=== PATIENT | male | born 1960 | race Caucasian/White ===

== ENCOUNTER 2016-10-25 23:25 | Inpatient (IN) ==
[2016-10-26 01:33] LABS: Basophils % 0.3 %; Eosinophils # 0.2 K/mcL (0.0-0.6); Eosinophils % 2.4 %; Hematocrit 40.7 % (37.5-50.1); Hemoglobin 13.3 g/dL (12.9-16.9); Immature Granulocytes % 0.3 % (0-4); Lymphocytes # 2.6 K/mcL (0.6-4.6); Lymphocytes % 29.9 %; Mean Corpuscular HGB Conc 32.7 g/dL (31.6-35.5); Mean Corpuscular Hemoglobin 29.8 pg (28.0-33.3); Mean Corpuscular Volume 91.3 fL (83.0-100.0); Mean Platelet Volume 9.7 fL (9.4-12.4); Monocytes # 0.9 K/mcL (0.0-1.3); Monocytes % 10.1 %; Platelet Count 248 K/mcL (140-400); Red Blood Count 4.46 M/mcL (4.19-5.50); Red Cell Distribution Width 13.6 % (11.5-14.5)
[2016-10-26 01:48] LABS: Alanine Aminotransferase 19 Units/L (0-55); Albumin 3.6 g/dL (3.5-5.0); Alkaline Phosphatase 70 Units/L (38-126); Aspartate Amino Transferase 24 Units/L (5-34); BUN/Creatinine Ratio 27 (6-26); Bilirubin,Direct 0.2 mg/dL (0.0-0.5); Bilirubin,Indirect 0.2 mg/dL (0.0-1.2); Bilirubin,Total 0.4 mg/dL (0.2-1.2); Blood Urea Nitrogen 26 mg/dL (8-26); Carbon Dioxide 21 mEq/L (19-29); Chloride 109 mEq/L (98-109); Globulin 3.5 g/dL (2.4-3.5); Glucose 131 mg/dL (70-99); Osmolality,Calculated 297 (280-300); Potassium 3.6 mEq/L (3.5-4.5); Sodium 140 mEq/L (136-145); Total Protein 7.1 g/dL (6.0-8.3); eGFR For African Americans > 60 (> 60); eGFR For Non-African Americans > 60 (> 60)
[2016-10-26 02:13] LABS: Acetaminophen < 1.0 mcg/mL (10-30); Ethanol < 10 mg/dL (0-10); Salicylate < 5.0 mg/dL (15-30)
[2016-10-26 02:31] LABS: Bilirubin,Urine Small (Negative); Blood,Urine Negative (Negative); Clarity,Urine Clear (Clear); Color,Urine Yellow (Yellow); Glucose,Urine (UA) Normal (Normal); Ketones,Urine Negative (Negative); Leukocyte Esterase,Urine Negative (Negative); Nitrite,Urine Negative (Negative); Protein,Urine Negative (Neg-Trace); Specific Gravity,Urine > 1.030 (1.010-1.025); Urobilinogen,Urine Normal (Normal)
[2016-10-26 02:32] LABS: Thyroid Stimulating Hormone 3.112 mcIU/mL (0.350-4.840)
[2016-10-26 02:33] LABS: Amphetamine Screen,Urine Negative ng/mL (Cutoff=1000); Barbiturate Screen,Urine Negative ng/mL (Cutoff=200); Benzodiazepines Screen,Urine Negative ng/mL (Cutoff=200); Cannabinoid Screen,Urine Positive ng/mL (Cutoff = 50); Cocaine Screen,Urine Negative ng/mL (Cutoff= 300); Opiate Screen,Urine Negative ng/mL (Cutoff=300); Phencyclidine Screen,Urine Negative ng/mL (Cutoff=25)
[2016-10-26] MEDS ORDERED: Acetaminophen 325 MG TABLET PO ONE (04:11)
--- NOTE | 2016-10-26 05:39 | Emergency Department Note ---
Disposition Clinical Impression: Xiao, Paranoia (psychosis) Strain of lumbar region Qualifiers: Encounter type: initial encounter Qualified Code(s): S39.012A - Strain of muscle, fascia and tendon of lower back, initial encounter Schizophrenia Qualifiers: Schizophrenia type: unspecified Qualified Code(s): F20.9 - Schizophrenia, unspecified Disposition: Still a Patient Condition: Fair Referrals: NO,PCP [Non-Partnered Physician] - Forms: ED Satisfaction Letter Psych HPI - General Chief Complaint: ED Back Pain/Injury Stated Complaint: back pain Time Seen by Provider: 10/26/16 03:06 Source: patient, EMS, police Mode of arrival: ambulatory Limitations: no limitations Nursing Notes Reviewed: Yes Vital Signs Reviewed: Yes - History of Present Illness HPI Narrative: Patient is a 56-year-old white male with a known history of schizophrenia who is had prior psychiatric admissions at [facility] in the past, who presents to the emergency department after he called police from his home reporting that he had been shot. Please responded to the scene once to find him uninjured and complaining of some paranoia that people were after him. According to the police they left the scene and he again called them with reports of people that were after him and trying to shoot him. Patient was brought to the emergency department for delusions and tangential thought, was reported by police that he was at home with extreme paranoia explaining various unrelated situations where people were after him and threatening to harm him. On arrival to the emergency department he told the triage nurse that he even on a riding lawnmower and describes a traumatic incident in which the mower rolled over completely on itself and he ended up upright still on the mower uninjured, and then began noticing some mild low back pain. Patient denies any radiation of pain, is ambulatory in the emergency department without difficulty, having racing thoughts and upon entering room patient had RT written two detailed pages about his random thought process and experiences at home prior to arrival. Police state at one time when they arrived at the scene he was sitting on the mower with no reported injuries or history of trauma. Pt complaint: altered mental status, anxiety If medical clearance, reason: psychiatric condition Onset (ago): Just [employer] HAND Duration: constant History of similar episodes: Yes Improves with: none Worsens with: none Alleged intoxication: No Associated Psychiatric Symptoms: racing thoughts, anxiety, other (agitation with questioning) Associated symptoms: Reports: other (back pain) Treatments prior to arrival: none, psychiatric referral (brought by police/EMS) - Related Data Allergies Allergy/AdvReac Type Severity Reaction Status Date / Time No Known Allergies Allergy Verified 10/25/16 23:51 All systems ED: reviewed and negative except as stated. Constitutional: Denies: fever, chills, weakness Eyes: Denies: vision change ENT ED: Denies: dysphagia Cardiovascular: Denies: chest pain, palpitations, dyspnea on exertion, syncope Respiratory: Denies: cough, dyspnea Gastrointestinal: Denies: abdominal pain, nausea, vomiting Genitourinary: Denies: urgency, dysuria Musculoskeletal: Reports: back pain (Patient with bilateral paraspinal lumbosacral tenderness, no midline tenderness). Denies: neck pain Integumentary: Denies: rash Neurological: Denies: headache, weakness, numbness, paresthesias, abnormal gait , vertigo Psychiatric: Reports: anxiety, visual hallucinations, other (Delusions, paranoia , intermittent agitation). Denies: suicidal thoughts, homicidal thoughts Past Medical History - Past Medical History Medical history: Reports: no medical history Psychiatric history: Reports: anxiety - Social History Smoking Status: Current every day smoker Alcohol use: Reports: none Drug use: Reports: none Physical Exam - General Limitations: no limitations General appearance: alert, in no apparent distress, anxious, other (Poor hygiene , disheveled) - Head Head exam: atraumatic, normocephalic - Eye Eye exam: Present: PERRL, EOMI. Absent: conjunctival injection - ENT ENT exam: normal oropharynx, mucous membranes moist - Neck Neck exam: Present: normal inspection, full ROM. Absent: tenderness - Chest Chest inspection: Present: normal inspection, symmetric chest wall rise. Absent : tenderness - Respiratory Respiratory exam: Present: normal lung sounds bilaterally. Absent: respiratory distress, wheezes - Cardiovascular Cardiovascular exam: Present: regular rate, normal rhythm, normal heart sounds - Abdominal Exam Abdominal exam: Present: soft, Non-Tender, normal bowel sounds. Absent: distention, guarding, rebound, rigidity - Rectal Exam Rectal exam: Present: deferred - Extremities Exam Extremities exam: Present: normal inspection, full ROM, normal capillary refill. Absent: tenderness, joint swelling, calf tenderness - Back Exam Back exam: Present: muscle spasm, paraspinal tenderness. Absent: CVA tenderness (R), CVA tenderness (L), vertebral tenderness, sciatic notch tenderness (R), sciatic notch tenderness (L), straight leg raise (R), straight leg raise (L) - Neurological Exam Neurological exam: Present: alert, oriented X3, CN II-XII intact, normal gait, reflexes normal. Absent: motor sensory deficit - Psychiatric Psychiatric exam: Present: agitated, anxious, manic, other (Tangential thought, flight of ideas) - Skin Skin exam: Present: warm, dry. Absent: rash, diaphoresis Course Course Narrative: Patient is a 56-year-old white male who was brought here escorted by police with what appears to be an exacerbation of his schizophrenia, with tangential thought, flight of ideas, and displaying manic symptoms. Patient with no sign of physical trauma on physical exam and imaging that was obtained was within normal limits. Patient has been medically cleared for further psychiatric evaluation. One A consultation is pending at this time. A pink slip has been signed and placed on the patient's chart. Patient will be signed out to Dr. Contreras for results of one a evaluation and final disposition Vital Signs Temperature 98.3 F 10/25/16 23:44 Pulse Rate 94 10/25/16 23:44 Respiratory Rate 20 10/25/16 23:44 Blood Pressure 124/78 10/25/16 23:44 O2 Sat by Pulse Oximetry 96 10/25/16 23:44 Temperature 98.3 F 10/27/16 13:40 Pulse Rate 86 10/28/16 05:14 Respiratory Rate 18 10/28/16 05:14 Blood Pressure 138/89 10/28/16 05:14 O2 Sat by Pulse Oximetry 98 10/28/16 05:14 Oxygen Delivery Oxygen Delivery Room Air Psych - Lab Data Lab results reviewed: Yes I reviewed the patient's lab results. Result diagrams: 10/26/16 01:27 10/26/16 01:27 Lab Results 10/26/16 10/26/16 10/26/16 Range/Units 01:27 01:27 02:18 WBC 8.8 (4.3-11.1) K/mcL RBC 4.46 (4.19-5.50) M/mcL Hgb 13.3 (12.9-16.9) g/dL Hct 40.7 (37.5-50.1) % MCV 91.3 (83.0-100.0) fL MCH 29.8 (28.0-33.3) pg MCHC 32.7 (31.6-35.5) g/dL RDW 13.6 (11.5-14.5) % Plt Count 248 (140-400) K/mcL MPV 9.7 (9.4-12.4) fL Immature Gran % 0.3 (0-4) % Seg Neutrophils % 57.0 % Lymphocytes % 29.9 % Monocytes % 10.1 % Eosinophils % 2.4 % Basophils % 0.3 % Neutrophils # 5.0 (1.6-8.9) K/mcL Lymphocytes # 2.6 (0.6-4.6) K/mcL Monocytes # 0.9 (0.0-1.3) K/mcL Eosinophils # 0.2 (0.0-0.6) K/mcL Basophils # 0.0 (0.0-0.2) K/mcL Sodium 140 (136-145) mEq/L Potassium 3.6 (3.5-4.5) mEq/L Chloride 109 (98-109) mEq/L Carbon Dioxide 21 (19-29) mEq/L BUN 26 (8-26) mg/dL Creatinine 0.96 (0.72-1.25) mg/dL Est GFR ( Amer) > 60 (> 60) Est GFR (Non-Af Amer) > 60 (> 60) BUN/Creatinine Ratio 27 H (6-26) Glucose 131 H (70-99) mg/dL Calculated Osmolality 297 (280-300) Calcium 9.0 (8.6-10.8) mg/dL Total Bilirubin 0.4 (0.2-1.2) mg/dL Direct Bilirubin 0.2 (0.0-0.5) mg/dL Indirect Bilirubin 0.2 (0.0-1.2) mg/dL AST 24 (5-34) Units/L ALT 19 (0-55) Units/L Alkaline Phosphatase 70 (38-126) Units/L Serum Total Protein 7.1 (6.0-8.3) g/dL Albumin 3.6 (3.5-5.0) g/dL Globulin 3.5 (2.4-3.5) g/dL Albumin/Globulin Ratio 1.0 L (1.1-2.2) TSH 3.112 (0.350-4.840) mcIU/mL Urine Color Yellow (Yellow) Urine Clarity Clear (Clear) Urine pH 6.0 (5.0-8.0) pH Units Ur Specific [place] > 1.030 H (1.010-1.025) Urine Protein Negative (Neg-Trace) mg/dL Urine Glucose (UA) Normal (Normal) mg/dL Urine Ketones Negative (Negative) mg/dL Urine Blood Negative (Negative) Urine Nitrite Negative (Negative) Urine Bilirubin Small H (Negative) Urine Urobilinogen Normal (Normal) mg/dL Ur Leukocyte Esterase Negative (Negative) Salicylates < 5.0 L (15-30) mg/dL Urine Opiates Screen (Gnospu=718) ng/mL Acetaminophen < 1.0 L (10-30) mcg/mL Ur Barbiturates Screen (Hjlqth=074) ng/mL Ur Phencyclidine Scrn (Cutoff=25) ng/mL Ur Amphetamines Screen (Pwwhry=6243) ng/mL U Benzodiazepines Scrn (Kfkwoy=066) ng/mL Urine Cocaine Screen (Cutoff= 300) ng/mL U Marijuana (THC) Screen (Cutoff = 50) ng/mL Ethyl Alcohol < 10 (0-10) mg/dL 10/26/16 Range/Units 02:21 WBC (4.3-11.1) K/mcL RBC (4.19-5.50) M/mcL Hgb (12.9-16.9) g/dL Hct (37.5-50.1) % MCV (83.0-100.0) fL MCH (28.0-33.3) pg MCHC (31.6-35.5) g/dL RDW (11.5-14.5) % Plt Count (140-400) K/mcL MPV (9.4-12.4) fL Immature Gran % (0-4) % Seg Neutrophils % % Lymphocytes % % Monocytes % % Eosinophils % % Basophils % % Neutrophils # (1.6-8.9) K/mcL Lymphocytes # (0.6-4.6) K/mcL Monocytes # (0.0-1.3) K/mcL Eosinophils # (0.0-0.6) K/mcL Basophils # (0.0-0.2) K/mcL Sodium (136-145) mEq/L Potassium (3.5-4.5) mEq/L Chloride (98-109) mEq/L Carbon Dioxide (19-29) mEq/L BUN (8-26) mg/dL Creatinine (0.72-1.25) mg/dL Est GFR ( Amer) (> 60) Est GFR (Non-Af Amer) (> 60) BUN/Creatinine Ratio (6-26) Glucose (70-99) mg/dL Calculated Osmolality (280-300) Calcium (8.6-10.8) mg/dL Total Bilirubin (0.2-1.2) mg/dL Direct Bilirubin (0.0-0.5) mg/dL Indirect Bilirubin (0.0-1.2) mg/dL AST (5-34) Units/L ALT (0-55) Units/L Alkaline Phosphatase (38-126) Units/L Serum Total Protein (6.0-8.3) g/dL Albumin (3.5-5.0) g/dL Globulin (2.4-3.5) g/dL Albumin/Globulin Ratio (1.1-2.2) TSH (0.350-4.840) mcIU/mL Urine Color (Yellow) Urine Clarity (Clear) Urine pH (5.0-8.0) pH Units Ur Specific [place] (1.010-1.025) Urine Protein (Neg-Trace) mg/dL Urine Glucose (UA) (Normal) mg/dL Urine Ketones (Negative) mg/dL Urine Blood (Negative) Urine Nitrite (Negative) Urine Bilirubin (Negative) Urine Urobilinogen (Normal) mg/dL Ur Leukocyte Esterase (Negative) Salicylates (15-30) mg/dL Urine Opiates Screen Negative (Wvxrqn=259) ng/mL Acetaminophen (10-30) mcg/mL Ur Barbiturates Screen Negative (Upftog=065) ng/mL Ur Phencyclidine Scrn Negative (Cutoff=25) ng/mL Ur Amphetamines Screen Negative (Ffmwks=0777) ng/mL U Benzodiazepines Scrn Negative (Xdvzsc=282) ng/mL Urine Cocaine Screen Negative (Cutoff= 300) ng/mL U Marijuana (THC) Screen Positive H (Cutoff = 50) ng/mL Ethyl Alcohol (0-10) mg/dL - Radiology Data Radiology results reviewed: Yes I reviewed the patient's radiology results. Psychiatric Medical Clearance - Medical Clearance Checklist Does the patient have a NEW psychiatric condition?: No Any abnormalities indicating possible medical illness?: No Any history of medical issues?: No Medical History: No Social History Section defined Any abnormal vital signs prior to transfer?: No Current Vitals: Last Vital Signs Temp 98.3 F 10/27/16 13:40 Pulse 86 10/28/16 05:14 Resp 18 10/28/16 05:14 BP 138/89 10/28/16 05:14 Pulse Ox 98 10/28/16 05:14 Is the patient intoxicated or cognitively impaired?: No Any abnormalities on the physical exam?: No Any abnormal labs?: Yes Abnormal Labs: Abnormal lab results BUN/Creatinine Ratio 27 (6-26) H 10/26/16 01:27 Glucose 131 mg/dL (70-99) H 10/26/16 01:27 Albumin/Globulin Ratio 1.0 (1.1-2.2) L 10/26/16 01:27 Ur Specific [place] > 1.030 (1.010-1.025) H 10/26/16 02:18 Urine Bilirubin Small (Negative) H 10/26/16 02:18 Salicylates < 5.0 mg/dL (15-30) L 10/26/16 01:27 Acetaminophen < 1.0 mcg/mL (10-30) L 10/26/16 01:27 U Marijuana (THC) Screen Positive ng/mL (Cutoff = 50) H 10/26/16 02:21 Does the patient require durable medical equiptment?: No Is the patient ambulatory?: Yes Is the patient a fall risk?: No Has the patient been medically cleared?: Yes Any acute medical condition require Tx prior to transfer?: No Attestation Statement - Attestation Attestation: Dr. Garcia update note: The patient continues to be medically stable at 7 AM on October 28. Still pending psychiatric disposition at this time
[2016-10-26] MEDS ORDERED: Ibuprofen 400 MG TABLET PO ONE (06:11)
[2016-10-26] MEDS ORDERED: *HR* LORazepam 2 MG/ML VIAL IM ONE (07:22)
[2016-10-26] MEDS ORDERED: Haloperidol Lactate 5 MG/ML VIAL IM ONE (07:22)
--- NOTE | 2016-10-26 07:55 | Emergency Department Note ---
Disposition Clinical Impression: Strain of lumbar region, Schizophrenia, Xiao, Paranoia (psychosis) Disposition: Still a Patient Condition: Fair Referrals: NO,PCP [Non-Partnered Physician] - Forms: ED Satisfaction Letter General Adult HPI - General Chief complaint: ED Back Pain/Injury Stated complaint: back pain Time Seen by Provider: 10/26/16 03:06 Source: patient, EMS, police Mode of arrival: ambulatory Limitations: no limitations Nursing Notes Reviewed: Yes Vital Signs Reviewed: Yes - History of Present Illness Pain Scale: 8 - Related Data Allergies Allergy/AdvReac Type Severity Reaction Status Date / Time No Known Allergies Allergy Verified 10/25/16 23:51 Constitutional: Denies: fever, chills, weakness Eyes: Denies: vision change ENT ED: Denies: dysphagia Cardiovascular: Denies: chest pain, palpitations, dyspnea on exertion, syncope Respiratory: Denies: cough, dyspnea Gastrointestinal: Denies: abdominal pain, nausea, vomiting Genitourinary: Denies: urgency, dysuria Musculoskeletal: Reports: back pain (Patient with bilateral paraspinal lumbosacral tenderness, no midline tenderness). Denies: neck pain Integumentary: Denies: rash Neurological: Denies: headache, weakness, numbness, paresthesias, abnormal gait , vertigo Psychiatric: Reports: anxiety, visual hallucinations, other (Delusions, paranoia , intermittent agitation). Denies: suicidal thoughts, homicidal thoughts Past Medical History - Past Medical History Medical history: Reports: no medical history Psychiatric history: Reports: anxiety - Social History Smoking Status: Current every day smoker Alcohol use: Reports: none Drug use: Reports: none Physical Exam - General Limitations: no limitations General appearance: alert, in no apparent distress, anxious, other (Poor hygiene , disheveled) Course Vital Signs Temperature 98.3 F 10/25/16 23:44 Pulse Rate 94 10/25/16 23:44 Respiratory Rate 20 10/25/16 23:44 Blood Pressure 124/78 10/25/16 23:44 O2 Sat by Pulse Oximetry 96 10/25/16 23:44 Temperature 97.5 F L 10/26/16 17:19 Pulse Rate 68 10/26/16 17:19 Respiratory Rate 16 10/26/16 17:19 Blood Pressure 116/69 10/26/16 17:19 O2 Sat by Pulse Oximetry 98 10/26/16 17:19 Oxygen Delivery Oxygen Delivery Room Air Medical Decision Making - MDM Narrative Medical decision making narrative: I examined this patient and my medical decision-making was reviewed with the [facility]RE[facility] LIGHT REPAIRER/PA/Advanced Practice Nurse/Resident Physician. I agree with the documented findings, disposition and treatment plan as described except to the extent set forth below. He this patient was signed out to me from the evening and Dr. Lei. He is waiting 1A evaluation. He has been belligerent with staff had some issues last night. he escalated he tried to leave. he has been threatening staff members. Security was called on patient was placed into a gown he was physically and chemically restrained. He does have a [address] He will be advised by one A1c is stable. 1200 hrs.: Patient has been cooperative. We released the restraints on his lower extremities and he did well . We RELEASED restraint on one of his upper extremities and he has done well with good pulses and movement of the hand keep in one hand and restraints if he is doing better then we will loosen that. 1745 hrs.: Patient's remained cooperative here. He has eaten. He is waiting to be placed at the state level. The update from them is that there are probably ate patient's in front of him so he will most likely be here for quite some time. He has been updated with this. I am going to sign him out to the evening ER physician Dr. Garcia for further management and disposition. - Lab Data Result diagrams: 10/26/16 01:27 10/26/16 01:27 Lab Results 10/26/16 10/26/16 10/26/16 Range/Units 01:27 01:27 02:18 WBC 8.8 (4.3-11.1) K/mcL RBC 4.46 (4.19-5.50) M/mcL Hgb 13.3 (12.9-16.9) g/dL Hct 40.7 (37.5-50.1) % MCV 91.3 (83.0-100.0) fL MCH 29.8 (28.0-33.3) pg MCHC 32.7 (31.6-35.5) g/dL RDW 13.6 (11.5-14.5) % Plt Count 248 (140-400) K/mcL MPV 9.7 (9.4-12.4) fL Immature Gran % 0.3 (0-4) % Seg Neutrophils % 57.0 % Lymphocytes % 29.9 % Monocytes % 10.1 % Eosinophils % 2.4 % Basophils % 0.3 % Neutrophils # 5.0 (1.6-8.9) K/mcL Lymphocytes # 2.6 (0.6-4.6) K/mcL Monocytes # 0.9 (0.0-1.3) K/mcL Eosinophils # 0.2 (0.0-0.6) K/mcL Basophils # 0.0 (0.0-0.2) K/mcL Sodium 140 (136-145) mEq/L Potassium 3.6 (3.5-4.5) mEq/L Chloride 109 (98-109) mEq/L Carbon Dioxide 21 (19-29) mEq/L BUN 26 (8-26) mg/dL Creatinine 0.96 (0.72-1.25) mg/dL Est GFR ( Amer) > 60 (> 60) Est GFR (Non-Af Amer) > 60 (> 60) BUN/Creatinine Ratio 27 H (6-26) Glucose 131 H (70-99) mg/dL Calculated Osmolality 297 (280-300) Calcium 9.0 (8.6-10.8) mg/dL Total Bilirubin 0.4 (0.2-1.2) mg/dL Direct Bilirubin 0.2 (0.0-0.5) mg/dL Indirect Bilirubin 0.2 (0.0-1.2) mg/dL AST 24 (5-34) Units/L ALT 19 (0-55) Units/L Alkaline Phosphatase 70 (38-126) Units/L Serum Total Protein 7.1 (6.0-8.3) g/dL Albumin 3.6 (3.5-5.0) g/dL Globulin 3.5 (2.4-3.5) g/dL Albumin/Globulin Ratio 1.0 L (1.1-2.2) TSH 3.112 (0.350-4.840) mcIU/mL Urine Color Yellow (Yellow) Urine Clarity Clear (Clear) Urine pH 6.0 (5.0-8.0) pH Units Ur Specific [place] > 1.030 H (1.010-1.025) Urine Protein Negative (Neg-Trace) mg/dL Urine Glucose (UA) Normal (Normal) mg/dL Urine Ketones Negative (Negative) mg/dL Urine Blood Negative (Negative) Urine Nitrite Negative (Negative) Urine Bilirubin Small H (Negative) Urine Urobilinogen Normal (Normal) mg/dL Ur Leukocyte Esterase Negative (Negative) Salicylates < 5.0 L (15-30) mg/dL Urine Opiates Screen (Oqldcn=175) ng/mL Acetaminophen < 1.0 L (10-30) mcg/mL Ur Barbiturates Screen (Kcvibi=468) ng/mL Ur Phencyclidine Scrn (Cutoff=25) ng/mL Ur Amphetamines Screen (Zymxgh=6191) ng/mL U Benzodiazepines Scrn (Xhacrw=783) ng/mL Urine Cocaine Screen (Cutoff= 300) ng/mL U Marijuana (THC) Screen (Cutoff = 50) ng/mL Ethyl Alcohol < 10 (0-10) mg/dL 10/26/16 Range/Units 02:21 WBC (4.3-11.1) K/mcL RBC (4.19-5.50) M/mcL Hgb (12.9-16.9) g/dL Hct (37.5-50.1) % MCV (83.0-100.0) fL MCH (28.0-33.3) pg MCHC (31.6-35.5) g/dL RDW (11.5-14.5) % Plt Count (140-400) K/mcL MPV (9.4-12.4) fL Immature Gran % (0-4) % Seg Neutrophils % % Lymphocytes % % Monocytes % % Eosinophils % % Basophils % % Neutrophils # (1.6-8.9) K/mcL Lymphocytes # (0.6-4.6) K/mcL Monocytes # (0.0-1.3) K/mcL Eosinophils # (0.0-0.6) K/mcL Basophils # (0.0-0.2) K/mcL Sodium (136-145) mEq/L Potassium (3.5-4.5) mEq/L Chloride (98-109) mEq/L Carbon Dioxide (19-29) mEq/L BUN (8-26) mg/dL Creatinine (0.72-1.25) mg/dL Est GFR ( Amer) (> 60) Est GFR (Non-Af Amer) (> 60) BUN/Creatinine Ratio (6-26) Glucose (70-99) mg/dL Calculated Osmolality (280-300) Calcium (8.6-10.8) mg/dL Total Bilirubin (0.2-1.2) mg/dL Direct Bilirubin (0.0-0.5) mg/dL Indirect Bilirubin (0.0-1.2) mg/dL AST (5-34) Units/L ALT (0-55) Units/L Alkaline Phosphatase (38-126) Units/L Serum Total Protein (6.0-8.3) g/dL Albumin (3.5-5.0) g/dL Globulin (2.4-3.5) g/dL Albumin/Globulin Ratio (1.1-2.2) TSH (0.350-4.840) mcIU/mL Urine Color (Yellow) Urine Clarity (Clear) Urine pH (5.0-8.0) pH Units Ur Specific [place] (1.010-1.025) Urine Protein (Neg-Trace) mg/dL Urine Glucose (UA) (Normal) mg/dL Urine Ketones (Negative) mg/dL Urine Blood (Negative) Urine Nitrite (Negative) Urine Bilirubin (Negative) Urine Urobilinogen (Normal) mg/dL Ur Leukocyte Esterase (Negative) Salicylates (15-30) mg/dL Urine Opiates Screen Negative (Twqrys=747) ng/mL Acetaminophen (10-30) mcg/mL Ur Barbiturates Screen Negative (Snaxgg=319) ng/mL Ur Phencyclidine Scrn Negative (Cutoff=25) ng/mL Ur Amphetamines Screen Negative (Zprsjm=8279) ng/mL U Benzodiazepines Scrn Negative (Lwhpjd=322) ng/mL Urine Cocaine Screen Negative (Cutoff= 300) ng/mL U Marijuana (THC) Screen Positive H (Cutoff = 50) ng/mL Ethyl Alcohol (0-10) mg/dL
--- NOTE | 2016-10-26 08:16 | Emergency Department Note ---
Disposition Clinical Impression: Strain of lumbar region, Schizophrenia, Xiao, Paranoia (psychosis) Disposition: Still a Patient Condition: Fair Referrals: NO,PCP [Non-Partnered Physician] - Forms: ED Satisfaction Letter General Adult HPI - General Chief complaint: ED Back Pain/Injury Stated complaint: back pain Time Seen by Provider: 10/26/16 03:06 Source: patient, EMS, police Mode of arrival: ambulatory Limitations: no limitations - History of Present Illness Pain Scale: 8 - Related Data Allergies Allergy/AdvReac Type Severity Reaction Status Date / Time No Known Allergies Allergy Verified 10/25/16 23:51 Constitutional: Denies: fever, chills, weakness Eyes: Denies: vision change ENT ED: Denies: dysphagia Cardiovascular: Denies: chest pain, palpitations, dyspnea on exertion, syncope Respiratory: Denies: cough, dyspnea Gastrointestinal: Denies: abdominal pain, nausea, vomiting Genitourinary: Denies: urgency, dysuria Musculoskeletal: Reports: back pain (Patient with bilateral paraspinal lumbosacral tenderness, no midline tenderness). Denies: neck pain Integumentary: Denies: rash Neurological: Denies: headache, weakness, numbness, paresthesias, abnormal gait , vertigo Psychiatric: Reports: anxiety, visual hallucinations, other (Delusions, paranoia , intermittent agitation). Denies: suicidal thoughts, homicidal thoughts Past Medical History - Past Medical History Medical history: Reports: no medical history Psychiatric history: Reports: anxiety - Social History Smoking Status: Current every day smoker Alcohol use: Reports: none Drug use: Reports: none Physical Exam - General Limitations: no limitations General appearance: alert, in no apparent distress, anxious, other (Poor hygiene , disheveled) Course - Reevaluation(s) Reevaluation #1: Patient signed out from the nighttime team for psychosis and back pain. Shortly upon arrival today, the patient became belligerent, yelling, screaming, cursing, barking like a dog. He was not responding to conservative measures and was placed in 4 poirestraints and sedated. Patient did settle down after 5- 10 minutes and has been fairly calm. Still awaiting placement. Vital Signs Temperature 98.3 F 10/25/16 23:44 Pulse Rate 94 10/25/16 23:44 Respiratory Rate 20 10/25/16 23:44 Blood Pressure 124/78 10/25/16 23:44 O2 Sat by Pulse Oximetry 96 10/25/16 23:44 Temperature 97.5 F L 10/26/16 17:19 Pulse Rate 68 10/26/16 17:19 Respiratory Rate 16 10/26/16 17:19 Blood Pressure 116/69 10/26/16 17:19 O2 Sat by Pulse Oximetry 98 10/26/16 17:19 Oxygen Delivery Oxygen Delivery Room Air Medical Decision Making - Lab Data Result diagrams: 10/26/16 01:27 10/26/16 01:27 Lab Results 10/26/16 10/26/16 10/26/16 Range/Units 01:27 01:27 02:18 WBC 8.8 (4.3-11.1) K/mcL RBC 4.46 (4.19-5.50) M/mcL Hgb 13.3 (12.9-16.9) g/dL Hct 40.7 (37.5-50.1) % MCV 91.3 (83.0-100.0) fL MCH 29.8 (28.0-33.3) pg MCHC 32.7 (31.6-35.5) g/dL RDW 13.6 (11.5-14.5) % Plt Count 248 (140-400) K/mcL MPV 9.7 (9.4-12.4) fL Immature Gran % 0.3 (0-4) % Seg Neutrophils % 57.0 % Lymphocytes % 29.9 % Monocytes % 10.1 % Eosinophils % 2.4 % Basophils % 0.3 % Neutrophils # 5.0 (1.6-8.9) K/mcL Lymphocytes # 2.6 (0.6-4.6) K/mcL Monocytes # 0.9 (0.0-1.3) K/mcL Eosinophils # 0.2 (0.0-0.6) K/mcL Basophils # 0.0 (0.0-0.2) K/mcL Sodium 140 (136-145) mEq/L Potassium 3.6 (3.5-4.5) mEq/L Chloride 109 (98-109) mEq/L Carbon Dioxide 21 (19-29) mEq/L BUN 26 (8-26) mg/dL Creatinine 0.96 (0.72-1.25) mg/dL Est GFR ( Amer) > 60 (> 60) Est GFR (Non-Af Amer) > 60 (> 60) BUN/Creatinine Ratio 27 H (6-26) Glucose 131 H (70-99) mg/dL Calculated Osmolality 297 (280-300) Calcium 9.0 (8.6-10.8) mg/dL Total Bilirubin 0.4 (0.2-1.2) mg/dL Direct Bilirubin 0.2 (0.0-0.5) mg/dL Indirect Bilirubin 0.2 (0.0-1.2) mg/dL AST 24 (5-34) Units/L ALT 19 (0-55) Units/L Alkaline Phosphatase 70 (38-126) Units/L Serum Total Protein 7.1 (6.0-8.3) g/dL Albumin 3.6 (3.5-5.0) g/dL Globulin 3.5 (2.4-3.5) g/dL Albumin/Globulin Ratio 1.0 L (1.1-2.2) TSH 3.112 (0.350-4.840) mcIU/mL Urine Color Yellow (Yellow) Urine Clarity Clear (Clear) Urine pH 6.0 (5.0-8.0) pH Units Ur Specific [place] > 1.030 H (1.010-1.025) Urine Protein Negative (Neg-Trace) mg/dL Urine Glucose (UA) Normal (Normal) mg/dL Urine Ketones Negative (Negative) mg/dL Urine Blood Negative (Negative) Urine Nitrite Negative (Negative) Urine Bilirubin Small H (Negative) Urine Urobilinogen Normal (Normal) mg/dL Ur Leukocyte Esterase Negative (Negative) Salicylates < 5.0 L (15-30) mg/dL Urine Opiates Screen (Knaqju=194) ng/mL Acetaminophen < 1.0 L (10-30) mcg/mL Ur Barbiturates Screen (Ehsutr=007) ng/mL Ur Phencyclidine Scrn (Cutoff=25) ng/mL Ur Amphetamines Screen (Dahjiu=7585) ng/mL U Benzodiazepines Scrn (Fimzqg=298) ng/mL Urine Cocaine Screen (Cutoff= 300) ng/mL U Marijuana (THC) Screen (Cutoff = 50) ng/mL Ethyl Alcohol < 10 (0-10) mg/dL 10/26/16 Range/Units 02:21 WBC (4.3-11.1) K/mcL RBC (4.19-5.50) M/mcL Hgb (12.9-16.9) g/dL Hct (37.5-50.1) % MCV (83.0-100.0) fL MCH (28.0-33.3) pg MCHC (31.6-35.5) g/dL RDW (11.5-14.5) % Plt Count (140-400) K/mcL MPV (9.4-12.4) fL Immature Gran % (0-4) % Seg Neutrophils % % Lymphocytes % % Monocytes % % Eosinophils % % Basophils % % Neutrophils # (1.6-8.9) K/mcL Lymphocytes # (0.6-4.6) K/mcL Monocytes # (0.0-1.3) K/mcL Eosinophils # (0.0-0.6) K/mcL Basophils # (0.0-0.2) K/mcL Sodium (136-145) mEq/L Potassium (3.5-4.5) mEq/L Chloride (98-109) mEq/L Carbon Dioxide (19-29) mEq/L BUN (8-26) mg/dL Creatinine (0.72-1.25) mg/dL Est GFR ( Amer) (> 60) Est GFR (Non-Af Amer) (> 60) BUN/Creatinine Ratio (6-26) Glucose (70-99) mg/dL Calculated Osmolality (280-300) Calcium (8.6-10.8) mg/dL Total Bilirubin (0.2-1.2) mg/dL Direct Bilirubin (0.0-0.5) mg/dL Indirect Bilirubin (0.0-1.2) mg/dL AST (5-34) Units/L ALT (0-55) Units/L Alkaline Phosphatase (38-126) Units/L Serum Total Protein (6.0-8.3) g/dL Albumin (3.5-5.0) g/dL Globulin (2.4-3.5) g/dL Albumin/Globulin Ratio (1.1-2.2) TSH (0.350-4.840) mcIU/mL Urine Color (Yellow) Urine Clarity (Clear) Urine pH (5.0-8.0) pH Units Ur Specific [place] (1.010-1.025) Urine Protein (Neg-Trace) mg/dL Urine Glucose (UA) (Normal) mg/dL Urine Ketones (Negative) mg/dL Urine Blood (Negative) Urine Nitrite (Negative) Urine Bilirubin (Negative) Urine Urobilinogen (Normal) mg/dL Ur Leukocyte Esterase (Negative) Salicylates (15-30) mg/dL Urine Opiates Screen Negative (Ggfjob=347) ng/mL Acetaminophen (10-30) mcg/mL Ur Barbiturates Screen Negative (Liknfw=299) ng/mL Ur Phencyclidine Scrn Negative (Cutoff=25) ng/mL Ur Amphetamines Screen Negative (Jgzait=5233) ng/mL U Benzodiazepines Scrn Negative (Kahkae=240) ng/mL Urine Cocaine Screen Negative (Cutoff= 300) ng/mL U Marijuana (THC) Screen Positive H (Cutoff = 50) ng/mL Ethyl Alcohol (0-10) mg/dL S.B.Tristen - Dmitri Situation: Demographics, MOA Background: Presenting Complaint, Relevant PMH, Meds, & Allergies Assessment: Vital Signs, Course and respsone to treatment, Exam Concerns, Patient/Family Expectation, Pertinant Lab Results, Outstanding Labs Recommendation: Barrier(s) to disposition, Recommendation based on pending studies, treatments, or consults S.Dahlia Report Given to: Dr. Susannah Rizvi Repor Time: 18:52
--- NOTE | 2016-10-26 19:15 | Emergency Department Note ---
Disposition Clinical Impression: Xiao, Paranoia (psychosis) Strain of lumbar region Qualifiers: Encounter type: initial encounter Qualified Code(s): S39.012A - Strain of muscle, fascia and tendon of lower back, initial encounter Schizophrenia Qualifiers: Schizophrenia type: unspecified Qualified Code(s): F20.9 - Schizophrenia, unspecified Disposition: Still a Patient Condition: Fair Referrals: NO,PCP [Non-Partnered Physician] - Forms: ED Satisfaction Letter Time of Disposition: 07:00 Psych HPI - General Chief Complaint: ED Back Pain/Injury Stated Complaint: back pain Time Seen by Provider: 10/26/16 03:06 Source: patient, EMS, police Mode of arrival: ambulatory - History of Present Illness Duration: constant Improves with: none Worsens with: none Associated symptoms: Reports: other (back pain) Treatments prior to arrival: none, psychiatric referral (brought by police/EMS) - Related Data Allergies Allergy/AdvReac Type Severity Reaction Status Date / Time No Known Allergies Allergy Verified 10/25/16 23:51 Constitutional: Denies: fever, chills, weakness Eyes: Denies: vision change ENT ED: Denies: dysphagia Cardiovascular: Denies: chest pain, palpitations, dyspnea on exertion, syncope Respiratory: Denies: cough, dyspnea Gastrointestinal: Denies: abdominal pain, nausea, vomiting Genitourinary: Denies: urgency, dysuria Musculoskeletal: Reports: back pain (Patient with bilateral paraspinal lumbosacral tenderness, no midline tenderness). Denies: neck pain Integumentary: Denies: rash Neurological: Denies: headache, weakness, numbness, paresthesias, abnormal gait , vertigo Psychiatric: Reports: anxiety, visual hallucinations, other (Delusions, paranoia , intermittent agitation). Denies: suicidal thoughts, homicidal thoughts Past Medical History - Past Medical History Medical history: Reports: no medical history Psychiatric history: Reports: anxiety - Social History Smoking Status: Current every day smoker Alcohol use: Reports: none Drug use: Reports: none Physical Exam - General Limitations: no limitations General appearance: alert, in no apparent distress, anxious, other (Poor hygiene , disheveled) - Eye Eye exam: Present: normal appearance, PERRL, EOMI - ENT ENT exam: normal exam, mucous membranes moist - Neck Neck exam: Present: normal inspection, full ROM, trachea midline - Chest Chest inspection: Present: normal inspection, symmetric chest wall rise - Respiratory Respiratory exam: Present: normal lung sounds bilaterally - Cardiovascular Cardiovascular exam: Present: regular rate, normal rhythm, normal heart sounds - Abdominal Exam Abdominal exam: Present: soft, Non-Tender. Absent: tenderness, distention, guarding, rebound, rigidity - Back Exam Back exam: Present: normal inspection, full ROM. Absent: tenderness - Neurological Exam Neurological exam: Present: alert, oriented X3 - Psychiatric Psychiatric exam: Present: anxious, other (flight of ideas, fast speech) - Skin Skin exam: Present: warm, dry, intact, normal color Course Course Narrative: Patient was a sign out from the day team Dr. Contreras and Dr. Urbina. Vitals within normal limits. Patient is still anxious, has fast speech, flight of ideas. He has not required any medications or interventions during his stay. Currently waiting on state psych placement. Will sign out to day team for further care. Vital Signs Temperature 98.3 F 10/25/16 23:44 Pulse Rate 94 10/25/16 23:44 Respiratory Rate 20 10/25/16 23:44 Blood Pressure 124/78 10/25/16 23:44 O2 Sat by Pulse Oximetry 96 10/25/16 23:44 Temperature 98.3 F 10/27/16 13:40 Pulse Rate 98 10/27/16 13:40 Respiratory Rate 18 10/27/16 13:40 Blood Pressure 148/88 10/27/16 13:40 O2 Sat by Pulse Oximetry 98 10/27/16 13:40 Oxygen Delivery Oxygen Delivery Room Air Psych - [facility] Narrative Medical decision making narrative: Patient was a sign out from the day team Dr. Contreras and Dr. Urbina. Vitals within normal limits. Patient is still anxious, has fast speech, flight of ideas. He has not required any medications or interventions during his stay. Currently waiting on state psych placement. Will sign out to day team for further care. - Medical Records Medical records reviewed: Yes I reviewed the patient's medical records. - Lab Data Lab results reviewed: Yes I reviewed the patient's lab results. Result diagrams: 10/26/16 01:27 10/26/16 01:27 Lab Results 10/26/16 10/26/16 10/26/16 Range/Units 01:27 01:27 02:18 WBC 8.8 (4.3-11.1) K/mcL RBC 4.46 (4.19-5.50) M/mcL Hgb 13.3 (12.9-16.9) g/dL Hct 40.7 (37.5-50.1) % MCV 91.3 (83.0-100.0) fL MCH 29.8 (28.0-33.3) pg MCHC 32.7 (31.6-35.5) g/dL RDW 13.6 (11.5-14.5) % Plt Count 248 (140-400) K/mcL MPV 9.7 (9.4-12.4) fL Immature Gran % 0.3 (0-4) % Seg Neutrophils % 57.0 % Lymphocytes % 29.9 % Monocytes % 10.1 % Eosinophils % 2.4 % Basophils % 0.3 % Neutrophils # 5.0 (1.6-8.9) K/mcL Lymphocytes # 2.6 (0.6-4.6) K/mcL Monocytes # 0.9 (0.0-1.3) K/mcL Eosinophils # 0.2 (0.0-0.6) K/mcL Basophils # 0.0 (0.0-0.2) K/mcL Sodium 140 (136-145) mEq/L Potassium 3.6 (3.5-4.5) mEq/L Chloride 109 (98-109) mEq/L Carbon Dioxide 21 (19-29) mEq/L BUN 26 (8-26) mg/dL Creatinine 0.96 (0.72-1.25) mg/dL Est GFR ( Amer) > 60 (> 60) Est GFR (Non-Af Amer) > 60 (> 60) BUN/Creatinine Ratio 27 H (6-26) Glucose 131 H (70-99) mg/dL Calculated Osmolality 297 (280-300) Calcium 9.0 (8.6-10.8) mg/dL Total Bilirubin 0.4 (0.2-1.2) mg/dL Direct Bilirubin 0.2 (0.0-0.5) mg/dL Indirect Bilirubin 0.2 (0.0-1.2) mg/dL AST 24 (5-34) Units/L ALT 19 (0-55) Units/L Alkaline Phosphatase 70 (38-126) Units/L Serum Total Protein 7.1 (6.0-8.3) g/dL Albumin 3.6 (3.5-5.0) g/dL Globulin 3.5 (2.4-3.5) g/dL Albumin/Globulin Ratio 1.0 L (1.1-2.2) TSH 3.112 (0.350-4.840) mcIU/mL Urine Color Yellow (Yellow) Urine Clarity Clear (Clear) Urine pH 6.0 (5.0-8.0) pH Units Ur Specific [place] > 1.030 H (1.010-1.025) Urine Protein Negative (Neg-Trace) mg/dL Urine Glucose (UA) Normal (Normal) mg/dL Urine Ketones Negative (Negative) mg/dL Urine Blood Negative (Negative) Urine Nitrite Negative (Negative) Urine Bilirubin Small H (Negative) Urine Urobilinogen Normal (Normal) mg/dL Ur Leukocyte Esterase Negative (Negative) Salicylates < 5.0 L (15-30) mg/dL Urine Opiates Screen (Mksdge=812) ng/mL Acetaminophen < 1.0 L (10-30) mcg/mL Ur Barbiturates Screen (Qhorxb=477) ng/mL Ur Phencyclidine Scrn (Cutoff=25) ng/mL Ur Amphetamines Screen (Orfaeu=7401) ng/mL U Benzodiazepines Scrn (Evolqi=070) ng/mL Urine Cocaine Screen (Cutoff= 300) ng/mL U Marijuana (THC) Screen (Cutoff = 50) ng/mL Ethyl Alcohol < 10 (0-10) mg/dL 10/26/16 Range/Units 02:21 WBC (4.3-11.1) K/mcL RBC (4.19-5.50) M/mcL Hgb (12.9-16.9) g/dL Hct (37.5-50.1) % MCV (83.0-100.0) fL MCH (28.0-33.3) pg MCHC (31.6-35.5) g/dL RDW (11.5-14.5) % Plt Count (140-400) K/mcL MPV (9.4-12.4) fL Immature Gran % (0-4) % Seg Neutrophils % % Lymphocytes % % Monocytes % % Eosinophils % % Basophils % % Neutrophils # (1.6-8.9) K/mcL Lymphocytes # (0.6-4.6) K/mcL Monocytes # (0.0-1.3) K/mcL Eosinophils # (0.0-0.6) K/mcL Basophils # (0.0-0.2) K/mcL Sodium (136-145) mEq/L Potassium (3.5-4.5) mEq/L Chloride (98-109) mEq/L Carbon Dioxide (19-29) mEq/L BUN (8-26) mg/dL Creatinine (0.72-1.25) mg/dL Est GFR ( Amer) (> 60) Est GFR (Non-Af Amer) (> 60) BUN/Creatinine Ratio (6-26) Glucose (70-99) mg/dL Calculated Osmolality (280-300) Calcium (8.6-10.8) mg/dL Total Bilirubin (0.2-1.2) mg/dL Direct Bilirubin (0.0-0.5) mg/dL Indirect Bilirubin (0.0-1.2) mg/dL AST (5-34) Units/L ALT (0-55) Units/L Alkaline Phosphatase (38-126) Units/L Serum Total Protein (6.0-8.3) g/dL Albumin (3.5-5.0) g/dL Globulin (2.4-3.5) g/dL Albumin/Globulin Ratio (1.1-2.2) TSH (0.350-4.840) mcIU/mL Urine Color (Yellow) Urine Clarity (Clear) Urine pH (5.0-8.0) pH Units Ur Specific [place] (1.010-1.025) Urine Protein (Neg-Trace) mg/dL Urine Glucose (UA) (Normal) mg/dL Urine Ketones (Negative) mg/dL Urine Blood (Negative) Urine Nitrite (Negative) Urine Bilirubin (Negative) Urine Urobilinogen (Normal) mg/dL Ur Leukocyte Esterase (Negative) Salicylates (15-30) mg/dL Urine Opiates Screen Negative (Lnvzgu=801) ng/mL Acetaminophen (10-30) mcg/mL Ur Barbiturates Screen Negative (Moqpdn=295) ng/mL Ur Phencyclidine Scrn Negative (Cutoff=25) ng/mL Ur Amphetamines Screen Negative (Oqhljl=9825) ng/mL U Benzodiazepines Scrn Negative (Rscxpo=345) ng/mL Urine Cocaine Screen Negative (Cutoff= 300) ng/mL U Marijuana (THC) Screen Positive H (Cutoff = 50) ng/mL Ethyl Alcohol (0-10) mg/dL - Radiology Data Radiology results reviewed: Yes I reviewed the patient's radiology results. Psychiatric Medical Clearance - Medical Clearance Checklist Medical History: No Social History Section defined Current Vitals: Last Vital Signs Temp 98.3 F 10/27/16 13:40 Pulse 98 10/27/16 13:40 Resp 18 10/27/16 13:40 BP 148/88 10/27/16 13:40 Pulse Ox 98 10/27/16 13:40 Abnormal Labs: Abnormal lab results BUN/Creatinine Ratio 27 (6-26) H 10/26/16 01:27 Glucose 131 mg/dL (70-99) H 10/26/16 01:27 Albumin/Globulin Ratio 1.0 (1.1-2.2) L 10/26/16 01:27 Ur Specific [place] > 1.030 (1.010-1.025) H 10/26/16 02:18 Urine Bilirubin Small (Negative) H 10/26/16 02:18 Salicylates < 5.0 mg/dL (15-30) L 10/26/16 01:27 Acetaminophen < 1.0 mcg/mL (10-30) L 10/26/16 01:27 U Marijuana (THC) Screen Positive ng/mL (Cutoff = 50) H 10/26/16 02:21 S.B.A.R. - S.B.A.R. Situation: Demographics, MOA Background: Presenting Complaint, Relevant PMH, Meds, & Allergies Assessment: Vital Signs, Course and respsone to treatment, Exam Concerns, Patient/Family Expectation, Pertinant Lab Results, Outstanding Labs Recommendation: Barrier(s) to disposition, Recommendation based on pending studies, treatments, or consults S.B.A.R. Report Given to: Teri S.B.A.RCain Repor Time: 07:00 Attestation Statement - Attestation Attestation: Dr Garcia note: Pt stable medically w/o any significant psych disturbance in hours 7p-7a from Monday pm to 7 a.m; coopartive/comfortable; pending psych placement @ this time;
--- NOTE | 2016-10-27 08:04 | Emergency Department Note ---
START Narrative - START START: I examined this patient and my medical decision-making was reviewed with the DIRECTOR SECURITY RISK MANAGEMENT/PA/Advanced Practice Nurse/Resident Physician. I agree with the documented findings, disposition and treatment plan as described except to the extent set forth below. ED attending note: Patient seen with emergency medicine resident Dr. Urbina. Please see a copy of his note for details of the H&P, evaluation, management and disposition of this patient. We independently had [id number] contact with the patient Briefly: Received patient at 7 AM in sign out from the evening team of Dr. Davalos and Dr. Garcia. Patient has been here over 35 hours on PSCHY HOLD for state placement. Patient is awake alert and cooperative. Mental health services is still trying to find placement at a state facility. Disposition pending. Patient did eat breakfast.
[2016-10-27] MEDS ORDERED: *HR* LORazepam 2 MG/ML VIAL IM ONE (17:51)
[2016-10-27] MEDS ORDERED: Haloperidol Lactate 5 MG/ML VIAL IM ONE (17:51)
--- NOTE | 2016-10-27 19:17 | Emergency Department Note ---
Disposition Clinical Impression: Xiao, Paranoia (psychosis) Strain of lumbar region Qualifiers: Encounter type: initial encounter Qualified Code(s): S39.012A - Strain of muscle, fascia and tendon of lower back, initial encounter Schizophrenia Qualifiers: Schizophrenia type: unspecified Qualified Code(s): F20.9 - Schizophrenia, unspecified Disposition: Still a Patient Condition: Fair Referrals: NO,PCP [Non-Partnered Physician] - Forms: ED Satisfaction Letter Time of Disposition: 07:00 Psych HPI - General Chief Complaint: ED Back Pain/Injury Stated Complaint: back pain Time Seen by Provider: 10/26/16 03:06 Source: patient, EMS, police Mode of arrival: ambulatory - History of Present Illness Duration: constant Improves with: none Worsens with: none Associated symptoms: Reports: other (back pain) Treatments prior to arrival: none, psychiatric referral (brought by police/EMS) - Related Data Allergies Allergy/AdvReac Type Severity Reaction Status Date / Time No Known Allergies Allergy Verified 10/25/16 23:51 Constitutional: Denies: fever, chills, weakness Eyes: Denies: vision change ENT ED: Denies: dysphagia Cardiovascular: Denies: chest pain, palpitations, dyspnea on exertion, syncope Respiratory: Denies: cough, dyspnea Gastrointestinal: Denies: abdominal pain, nausea, vomiting Genitourinary: Denies: urgency, dysuria Musculoskeletal: Reports: back pain (Patient with bilateral paraspinal lumbosacral tenderness, no midline tenderness). Denies: neck pain Integumentary: Denies: rash Neurological: Denies: headache, weakness, numbness, paresthesias, abnormal gait , vertigo Psychiatric: Reports: anxiety, visual hallucinations, other (Delusions, paranoia , intermittent agitation). Denies: suicidal thoughts, homicidal thoughts Past Medical History - Past Medical History Medical history: Reports: no medical history Psychiatric history: Reports: anxiety - Social History Smoking Status: Current every day smoker Alcohol use: Reports: none Drug use: Reports: none Physical Exam - General Limitations: no limitations General appearance: alert, in no apparent distress, anxious, other (Poor hygiene , disheveled) - Head Head exam: atraumatic, normocephalic, normal inspection - Eye Eye exam: Present: normal appearance, PERRL, EOMI - ENT ENT exam: mucous membranes moist - Neck Neck exam: Present: normal inspection, full ROM, trachea midline - Chest Chest inspection: Present: normal inspection, symmetric chest wall rise - Respiratory Respiratory exam: Present: normal lung sounds bilaterally - Cardiovascular Cardiovascular exam: Present: regular rate, normal rhythm, normal heart sounds - Abdominal Exam Abdominal exam: Present: soft, Non-Tender. Absent: tenderness, distention, guarding, rebound, rigidity - Extremities Exam Extremities exam: Present: normal inspection, full ROM. 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 Monroy and Dr. Urbina. Vitals within normal limits. Patient is still anxious, has fast speech and tangential thoughts. He was given ibuprofen and tylenol overnight for back pain. Currently waiting on state psych placement at [facility]. Will sign out to day team for further care. Vital Signs Temperature 98.3 F 10/25/16 23:44 Pulse Rate 94 10/25/16 23:44 Respiratory Rate 20 10/25/16 23:44 Blood Pressure 124/78 10/25/16 23:44 O2 Sat by Pulse Oximetry 96 10/25/16 23:44 Temperature 98.3 F 10/27/16 13:40 Pulse Rate 86 10/28/16 05:14 Respiratory Rate 18 10/28/16 05:14 Blood Pressure 138/89 10/28/16 05:14 O2 Sat by Pulse Oximetry 98 10/28/16 05:14 Oxygen Delivery Oxygen Delivery Room Air Psych - [facility] Narrative Medical decision making narrative: Patient was a sign out from the day team Dr. Monroy and Dr. Urbina. Vitals within normal limits. Patient is still anxious, has fast speech and tangential thoughts. He was given ibuprofen and tylenol overnight for back pain. Currently waiting on state psych placement at [facility]. Will sign out to day team for further care. - Medical Records Medical records reviewed: Yes I reviewed the patient's medical records. - Lab Data Lab results reviewed: Yes I reviewed the patient's lab results. Result diagrams: 10/26/16 01:27 10/26/16 01:27 Lab Results 10/26/16 10/26/16 10/26/16 Range/Units 01:27 01:27 02:18 WBC 8.8 (4.3-11.1) K/mcL RBC 4.46 (4.19-5.50) M/mcL Hgb 13.3 (12.9-16.9) g/dL Hct 40.7 (37.5-50.1) % MCV 91.3 (83.0-100.0) fL MCH 29.8 (28.0-33.3) pg MCHC 32.7 (31.6-35.5) g/dL RDW 13.6 (11.5-14.5) % Plt Count 248 (140-400) K/mcL MPV 9.7 (9.4-12.4) fL Immature Gran % 0.3 (0-4) % Seg Neutrophils % 57.0 % Lymphocytes % 29.9 % Monocytes % 10.1 % Eosinophils % 2.4 % Basophils % 0.3 % Neutrophils # 5.0 (1.6-8.9) K/mcL Lymphocytes # 2.6 (0.6-4.6) K/mcL Monocytes # 0.9 (0.0-1.3) K/mcL Eosinophils # 0.2 (0.0-0.6) K/mcL Basophils # 0.0 (0.0-0.2) K/mcL Sodium 140 (136-145) mEq/L Potassium 3.6 (3.5-4.5) mEq/L Chloride 109 (98-109) mEq/L Carbon Dioxide 21 (19-29) mEq/L BUN 26 (8-26) mg/dL Creatinine 0.96 (0.72-1.25) mg/dL Est GFR ( Amer) > 60 (> 60) Est GFR (Non-Af Amer) > 60 (> 60) BUN/Creatinine Ratio 27 H (6-26) Glucose 131 H (70-99) mg/dL Calculated Osmolality 297 (280-300) Calcium 9.0 (8.6-10.8) mg/dL Total Bilirubin 0.4 (0.2-1.2) mg/dL Direct Bilirubin 0.2 (0.0-0.5) mg/dL Indirect Bilirubin 0.2 (0.0-1.2) mg/dL AST 24 (5-34) Units/L ALT 19 (0-55) Units/L Alkaline Phosphatase 70 (38-126) Units/L Serum Total Protein 7.1 (6.0-8.3) g/dL Albumin 3.6 (3.5-5.0) g/dL Globulin 3.5 (2.4-3.5) g/dL Albumin/Globulin Ratio 1.0 L (1.1-2.2) TSH 3.112 (0.350-4.840) mcIU/mL Urine Color Yellow (Yellow) Urine Clarity Clear (Clear) Urine pH 6.0 (5.0-8.0) pH Units Ur Specific [place] > 1.030 H (1.010-1.025) Urine Protein Negative (Neg-Trace) mg/dL Urine Glucose (UA) Normal (Normal) mg/dL Urine Ketones Negative (Negative) mg/dL Urine Blood Negative (Negative) Urine Nitrite Negative (Negative) Urine Bilirubin Small H (Negative) Urine Urobilinogen Normal (Normal) mg/dL Ur Leukocyte Esterase Negative (Negative) Salicylates < 5.0 L (15-30) mg/dL Urine Opiates Screen (Culdif=143) ng/mL Acetaminophen < 1.0 L (10-30) mcg/mL Ur Barbiturates Screen (Aggzxt=780) ng/mL Ur Phencyclidine Scrn (Cutoff=25) ng/mL Ur Amphetamines Screen (Lljjef=9611) ng/mL U Benzodiazepines Scrn (Puycls=594) ng/mL Urine Cocaine Screen (Cutoff= 300) ng/mL U Marijuana (THC) Screen (Cutoff = 50) ng/mL Ethyl Alcohol < 10 (0-10) mg/dL 10/26/16 Range/Units 02:21 WBC (4.3-11.1) K/mcL RBC (4.19-5.50) M/mcL Hgb (12.9-16.9) g/dL Hct (37.5-50.1) % MCV (83.0-100.0) fL MCH (28.0-33.3) pg MCHC (31.6-35.5) g/dL RDW (11.5-14.5) % Plt Count (140-400) K/mcL MPV (9.4-12.4) fL Immature Gran % (0-4) % Seg Neutrophils % % Lymphocytes % % Monocytes % % Eosinophils % % Basophils % % Neutrophils # (1.6-8.9) K/mcL Lymphocytes # (0.6-4.6) K/mcL Monocytes # (0.0-1.3) K/mcL Eosinophils # (0.0-0.6) K/mcL Basophils # (0.0-0.2) K/mcL Sodium (136-145) mEq/L Potassium (3.5-4.5) mEq/L Chloride (98-109) mEq/L Carbon Dioxide (19-29) mEq/L BUN (8-26) mg/dL Creatinine (0.72-1.25) mg/dL Est GFR ( Amer) (> 60) Est GFR (Non-Af Amer) (> 60) BUN/Creatinine Ratio (6-26) Glucose (70-99) mg/dL Calculated Osmolality (280-300) Calcium (8.6-10.8) mg/dL Total Bilirubin (0.2-1.2) mg/dL Direct Bilirubin (0.0-0.5) mg/dL Indirect Bilirubin (0.0-1.2) mg/dL AST (5-34) Units/L ALT (0-55) Units/L Alkaline Phosphatase (38-126) Units/L Serum Total Protein (6.0-8.3) g/dL Albumin (3.5-5.0) g/dL Globulin (2.4-3.5) g/dL Albumin/Globulin Ratio (1.1-2.2) TSH (0.350-4.840) mcIU/mL Urine Color (Yellow) Urine Clarity (Clear) Urine pH (5.0-8.0) pH Units Ur Specific [place] (1.010-1.025) Urine Protein (Neg-Trace) mg/dL Urine Glucose (UA) (Normal) mg/dL Urine Ketones (Negative) mg/dL Urine Blood (Negative) Urine Nitrite (Negative) Urine Bilirubin (Negative) Urine Urobilinogen (Normal) mg/dL Ur Leukocyte Esterase (Negative) Salicylates (15-30) mg/dL Urine Opiates Screen Negative (Nvmiay=628) ng/mL Acetaminophen (10-30) mcg/mL Ur Barbiturates Screen Negative (Sqtzxk=459) ng/mL Ur Phencyclidine Scrn Negative (Cutoff=25) ng/mL Ur Amphetamines Screen Negative (Sdhrmk=1906) ng/mL U Benzodiazepines Scrn Negative (Xpvwfy=260) ng/mL Urine Cocaine Screen Negative (Cutoff= 300) ng/mL U Marijuana (THC) Screen Positive H (Cutoff = 50) ng/mL Ethyl Alcohol (0-10) mg/dL - Radiology Data Radiology results reviewed: Yes I reviewed the patient's radiology results. Psychiatric Medical Clearance - Medical Clearance Checklist Medical History: No Social History Section defined Current Vitals: Last Vital Signs Temp 98.3 F 10/27/16 13:40 Pulse 86 10/28/16 05:14 Resp 18 10/28/16 05:14 BP 138/89 10/28/16 05:14 Pulse Ox 98 10/28/16 05:14 Abnormal Labs: Abnormal lab results BUN/Creatinine Ratio 27 (6-26) H 10/26/16 01:27 Glucose 131 mg/dL (70-99) H 10/26/16 01:27 Albumin/Globulin Ratio 1.0 (1.1-2.2) L 10/26/16 01:27 Ur Specific [place] > 1.030 (1.010-1.025) H 10/26/16 02:18 Urine Bilirubin Small (Negative) H 10/26/16 02:18 Salicylates < 5.0 mg/dL (15-30) L 10/26/16 01:27 Acetaminophen < 1.0 mcg/mL (10-30) L 10/26/16 01:27 U Marijuana (THC) Screen Positive ng/mL (Cutoff = 50) H 10/26/16 02:21 Statement of Medical Clearance: I have evaluated the patient, reviewed diagnostic information, and certify that the patient's medical condition is sufficiently stable that transfer to the psychiatric unit does not pose a significant risk of deterioration. S.B.A.R. - S.B.A.R. Situation: Demographics, MOA Background: Presenting Complaint, Relevant PMH, Meds, & Allergies Assessment: Vital Signs, Course and respsone to treatment, Exam Concerns, Patient/Family Expectation, Pertinant Lab Results, Outstanding Labs Recommendation: Barrier(s) to disposition, Recommendation based on pending studies, treatments, or consults S.Stefano.A.RCain Report Given to: Dr. Eliana Badillo SKristofer Repor Time: 07:00
[2016-10-27] MEDS ORDERED: Ibuprofen 800 MG TABLET PO ONE (19:57)
[2016-10-27] MEDS ORDERED: Acetaminophen 325 MG TABLET PO ONE (23:53)
[2016-10-28] MEDS: Nicotine 21 MG PATCH.TD24 TD SCH ×3 (04:39→17:42)
--- NOTE | 2016-10-28 07:18 | Emergency Department Note ---
Disposition Clinical Impression: Xiao, Paranoia (psychosis) Strain of lumbar region Qualifiers: Encounter type: initial encounter Qualified Code(s): S39.012A - Strain of muscle, fascia and tendon of lower back, initial encounter Schizophrenia Qualifiers: Schizophrenia type: unspecified Qualified Code(s): F20.9 - Schizophrenia, unspecified Disposition: Admitted As Inpatient Condition: Good Referrals: NO,PCP [Non-Partnered Physician] - Forms: ED Satisfaction Letter Time of Disposition: 15:02 General Adult HPI - General Chief complaint: ED Back Pain/Injury Stated complaint: back pain Time Seen by Provider: 10/26/16 03:06 Source: patient, EMS, police Mode of arrival: ambulatory Limitations: no limitations - History of Present Illness Pain Scale: 0 - Related Data Allergies Allergy/AdvReac Type Severity Reaction Status Date / Time No Known Allergies Allergy Verified 10/25/16 23:51 Constitutional: Denies: fever, chills, weakness Eyes: Denies: vision change ENT ED: Denies: dysphagia Cardiovascular: Denies: chest pain, palpitations, dyspnea on exertion, syncope Respiratory: Denies: cough, dyspnea Gastrointestinal: Denies: abdominal pain, nausea, vomiting Genitourinary: Denies: urgency, dysuria Musculoskeletal: Reports: back pain (Patient with bilateral paraspinal lumbosacral tenderness, no midline tenderness). Denies: neck pain Integumentary: Denies: rash Neurological: Denies: headache, weakness, numbness, paresthesias, abnormal gait , vertigo Psychiatric: Reports: anxiety, visual hallucinations, other (Delusions, paranoia , intermittent agitation). Denies: suicidal thoughts, homicidal thoughts Past Medical History - Past Medical History Medical history: Reports: no medical history Psychiatric history: Reports: anxiety - Social History Smoking Status: Current every day smoker Alcohol use: Reports: none Drug use: Reports: none Physical Exam - General Limitations: no limitations General appearance: alert, in no apparent distress, anxious, other (Poor hygiene , disheveled) Course - Reevaluation(s) Reevaluation #1: Patient accepted in sign out from Dr. Baldemar Garrett. Please see copy of his note for the prior shift. I assumed care from him from the day before patient was mental health issues that need state placement. Due to limited availability health services is still awaiting placement for him patient is awake and alert appropriate. Breakfast tray has been ordered. We will reconsult mental health services for an update on bed availability. Disposition pending. Time: 07:17 Reevaluation #2: He contacted mental health services at [facility]. Discussed the case with the psychiatric nurse thi. Patient accepted for admission. They requested the orders for bed placement to be put in the computer they were. Awaiting arrival of security and the psychiatric nurses taken down stairs. Patient accepted for admission at 1500 in stable condition. Time: 15:02 Vital Signs Temperature 98.3 F 10/25/16 23:44 Pulse Rate 94 10/25/16 23:44 Respiratory Rate 20 10/25/16 23:44 Blood Pressure 124/78 10/25/16 23:44 O2 Sat by Pulse Oximetry 96 10/25/16 23:44 Temperature 98.3 F 10/27/16 13:40 Pulse Rate 86 10/28/16 05:14 Respiratory Rate 18 10/28/16 05:14 Blood Pressure 138/89 10/28/16 05:14 O2 Sat by Pulse Oximetry 98 10/28/16 05:14 Oxygen Delivery Oxygen Delivery Room Air Medical Decision Making - Lab Data Result diagrams: 10/26/16 01:27 10/26/16 01:27 Lab Results 10/26/16 10/26/16 10/26/16 Range/Units 01:27 01:27 02:18 WBC 8.8 (4.3-11.1) K/mcL RBC 4.46 (4.19-5.50) M/mcL Hgb 13.3 (12.9-16.9) g/dL Hct 40.7 (37.5-50.1) % MCV 91.3 (83.0-100.0) fL MCH 29.8 (28.0-33.3) pg MCHC 32.7 (31.6-35.5) g/dL RDW 13.6 (11.5-14.5) % Plt Count 248 (140-400) K/mcL MPV 9.7 (9.4-12.4) fL Immature Gran % 0.3 (0-4) % Seg Neutrophils % 57.0 % Lymphocytes % 29.9 % Monocytes % 10.1 % Eosinophils % 2.4 % Basophils % 0.3 % Neutrophils # 5.0 (1.6-8.9) K/mcL Lymphocytes # 2.6 (0.6-4.6) K/mcL Monocytes # 0.9 (0.0-1.3) K/mcL Eosinophils # 0.2 (0.0-0.6) K/mcL Basophils # 0.0 (0.0-0.2) K/mcL Sodium 140 (136-145) mEq/L Potassium 3.6 (3.5-4.5) mEq/L Chloride 109 (98-109) mEq/L Carbon Dioxide 21 (19-29) mEq/L BUN 26 (8-26) mg/dL Creatinine 0.96 (0.72-1.25) mg/dL Est GFR ( Amer) > 60 (> 60) Est GFR (Non-Af Amer) > 60 (> 60) BUN/Creatinine Ratio 27 H (6-26) Glucose 131 H (70-99) mg/dL Calculated Osmolality 297 (280-300) Calcium 9.0 (8.6-10.8) mg/dL Total Bilirubin 0.4 (0.2-1.2) mg/dL Direct Bilirubin 0.2 (0.0-0.5) mg/dL Indirect Bilirubin 0.2 (0.0-1.2) mg/dL AST 24 (5-34) Units/L ALT 19 (0-55) Units/L Alkaline Phosphatase 70 (38-126) Units/L Serum Total Protein 7.1 (6.0-8.3) g/dL Albumin 3.6 (3.5-5.0) g/dL Globulin 3.5 (2.4-3.5) g/dL Albumin/Globulin Ratio 1.0 L (1.1-2.2) TSH 3.112 (0.350-4.840) mcIU/mL Urine Color Yellow (Yellow) Urine Clarity Clear (Clear) Urine pH 6.0 (5.0-8.0) pH Units Ur Specific [place] > 1.030 H (1.010-1.025) Urine Protein Negative (Neg-Trace) mg/dL Urine Glucose (UA) Normal (Normal) mg/dL Urine Ketones Negative (Negative) mg/dL Urine Blood Negative (Negative) Urine Nitrite Negative (Negative) Urine Bilirubin Small H (Negative) Urine Urobilinogen Normal (Normal) mg/dL Ur Leukocyte Esterase Negative (Negative) Salicylates < 5.0 L (15-30) mg/dL Urine Opiates Screen (Ohetci=049) ng/mL Acetaminophen < 1.0 L (10-30) mcg/mL Ur Barbiturates Screen (Veqiuk=347) ng/mL Ur Phencyclidine Scrn (Cutoff=25) ng/mL Ur Amphetamines Screen (Nrdtse=1515) ng/mL U Benzodiazepines Scrn (Ldxuru=312) ng/mL Urine Cocaine Screen (Cutoff= 300) ng/mL U Marijuana (THC) Screen (Cutoff = 50) ng/mL Ethyl Alcohol < 10 (0-10) mg/dL 10/26/16 Range/Units 02:21 WBC (4.3-11.1) K/mcL RBC (4.19-5.50) M/mcL Hgb (12.9-16.9) g/dL Hct (37.5-50.1) % MCV (83.0-100.0) fL MCH (28.0-33.3) pg MCHC (31.6-35.5) g/dL RDW (11.5-14.5) % Plt Count (140-400) K/mcL MPV (9.4-12.4) fL Immature Gran % (0-4) % Seg Neutrophils % % Lymphocytes % % Monocytes % % Eosinophils % % Basophils % % Neutrophils # (1.6-8.9) K/mcL Lymphocytes # (0.6-4.6) K/mcL Monocytes # (0.0-1.3) K/mcL Eosinophils # (0.0-0.6) K/mcL Basophils # (0.0-0.2) K/mcL Sodium (136-145) mEq/L Potassium (3.5-4.5) mEq/L Chloride (98-109) mEq/L Carbon Dioxide (19-29) mEq/L BUN (8-26) mg/dL Creatinine (0.72-1.25) mg/dL Est GFR ( Amer) (> 60) Est GFR (Non-Af Amer) (> 60) BUN/Creatinine Ratio (6-26) Glucose (70-99) mg/dL Calculated Osmolality (280-300) Calcium (8.6-10.8) mg/dL Total Bilirubin (0.2-1.2) mg/dL Direct Bilirubin (0.0-0.5) mg/dL Indirect Bilirubin (0.0-1.2) mg/dL AST (5-34) Units/L ALT (0-55) Units/L Alkaline Phosphatase (38-126) Units/L Serum Total Protein (6.0-8.3) g/dL Albumin (3.5-5.0) g/dL Globulin (2.4-3.5) g/dL Albumin/Globulin Ratio (1.1-2.2) TSH (0.350-4.840) mcIU/mL Urine Color (Yellow) Urine Clarity (Clear) Urine pH (5.0-8.0) pH Units Ur Specific [place] (1.010-1.025) Urine Protein (Neg-Trace) mg/dL Urine Glucose (UA) (Normal) mg/dL Urine Ketones (Negative) mg/dL Urine Blood (Negative) Urine Nitrite (Negative) Urine Bilirubin (Negative) Urine Urobilinogen (Normal) mg/dL Ur Leukocyte Esterase (Negative) Salicylates (15-30) mg/dL Urine Opiates Screen Negative (Apcyze=588) ng/mL Acetaminophen (10-30) mcg/mL Ur Barbiturates Screen Negative (Oixugl=409) ng/mL Ur Phencyclidine Scrn Negative (Cutoff=25) ng/mL Ur Amphetamines Screen Negative (Tptowu=4341) ng/mL U Benzodiazepines Scrn Negative (Ccirit=568) ng/mL Urine Cocaine Screen Negative (Cutoff= 300) ng/mL U Marijuana (THC) Screen Positive H (Cutoff = 50) ng/mL Ethyl Alcohol (0-10) mg/dL
[2016-10-28] MEDS ORDERED: Nicotine 21 MG PATCH.TD24 TD SCH (09:00)
[2016-10-28] MEDS ORDERED: ALPRAZolam 0.5 MG TABLET PO ONE (13:03)
[2016-10-28] MEDS ORDERED: Mag Hydrox/Al Hydrox/Simeth 30 ML UDC PO PRN (16:28)
[2016-10-28] MEDS ORDERED: *HR* LORazepam 1 MG TABLET PO PRN ×2 (16:28→16:40)
[2016-10-28] MEDS ORDERED: MOM Conc 10 ML UD.LIQ PO PRN (16:28)
[2016-10-28] MEDS ORDERED: Haloperidol Lactate 5 MG/ML VIAL IM PRN ×3 (16:28→17:01)
[2016-10-28] MEDS ORDERED: hydrOXYzine pamoate 25 MG CAPSULE PO PRN (16:28)
[2016-10-28] MEDS ORDERED: *HR* LORazepam 2 MG/ML VIAL IM PRN ×2 (16:28→16:39)
[2016-10-28] MEDS: Acetaminophen 325 MG TABLET PO PRN (17:45)
[2016-10-28] MEDS: traZODone 50 MG TABLET PO PRN (20:36)
[2016-10-28] MEDS: ALPRAZolam 0.5 MG TABLET PO SCH (20:36)
[2016-10-29] MEDS: Nicotine 21 MG PATCH.TD24 TD SCH (08:46)
[2016-10-29] MEDS: ALPRAZolam 0.5 MG TABLET PO SCH ×2 (08:48→21:25)
--- NOTE | 2016-10-29 11:07 | Psychiatry History & Physical ---
Date of Encounter: 10/30/16 Time of Encounter: 10:35 History of Present Illness Patient Stated Chief Complaint: Back injury/psychosis Medicare Admission Attestation: For traditional Medicare patients the provided hospital inpatient services are reasonable and necessary and in the case of services not specified as inpatient -only under 42 CFR 419.22 (n), that they are appropriately provided as inpatient services in accordance 42 CFR 412.3. For Critical [facility] the patient may reasonably be expected to be discharged or transferred to a hospital within 96 hours after admission to the Critical [facility]. Admitted From: Emergency Dept History of Present Illness: Mr. Mina is a 56 year old male admitted from the emergency room for evaluation of psychosis. Patient presented to the emergency room initially complaining that he suffered a back injury while he is mowing his lawn. He was evaluated and treated for his back pain and at that time patient was noticed to be agitated and his speech was pressured and bizarre and psychiatric evaluation was requested by the emergency room. Nursing staff evaluated the patient's aunt reported that he has a history of placement in the [facility] in the past and he is followed up in a mental health center but no records no record or psychiatric treatment at this hospital were found. Emergency room records included the diagnosis of schizophrenia however there was no information to support this diagnosis. Patient was assessed for admission to [facility] however after waiting for 2 days he was not able to be admitted. At that point there was a bed available in 1 A , patient was admitted involuntarily to evaluate psychosis. Patient reported that several years ago he was involved in shoplifting and was arrested and in the process he was presented as needing mental health evaluation and was sent to [address] [place] [address] for evaluation where he was hospitalized for several months. Patient claimed that he has never had any mental illness and believe that hospitalization was unjustified. Patient also was very concerned about treatment with Risperdal that resulted in gynecomastia and he is seeking surgical treatment by a plastic surgeon. There was no evidence in the history of any suicidal attempts or assaultive behavior towards others. 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 He smokes a pack of cigarettes a day and consumes some caffeine denies any alcohol or drugs except smoking marijuana , his tox screen in the ED was positive for THC. Past Med Surg Social Fam HX - Past Medical History Medical history: no medical history - Past Psychiatric History Psychiatric history: Reports: schizophrenia, previous psychiatric hospitalization Past psychiatric history details: Patient reports hospitalization at [facility] in the past. No records to review Family psychiatric history: Unknown Family History of Suicide: Unknown - Past Surgical History Surgical History: non-contributory - Social History Smoking Status: Current every day smoker Smokeless Tobacco Status: No Alcohol use: none Drug use: none Medications & Allergies Alprazolam [Xanax 0.5 MG Tablet] 0.5 mg PO BID 10/28/16 [History] Paroxetine HCl [Paxil] 10 mg PO DAILY 10/28/16 [History] Allergies No Known Allergies Allergy (Verified 10/25/16 23:51) Review of Systems Psychiatric: Reports: other (Paranoid delusion and pressured speech) Mental Status Exam Patient orientation: Yes Person, Yes Time, Yes Place Level of alertness: Alert Patient appearance: Appropriate, Unkempt, Disheveled, Bizarre, Obese Behavior: cooperative, aggressive, talkative, dramatic Psychomotor activity: Increased Eye contact: Fleeting Contact Mood description: Euphoric, Labile, Irritable Affect description: congruent with mood, labile, euphoric Speech pattern: Normal rate, Normal rhythm, Normal tone, Excessive, Pressured Speech volume: Loud Thought process: Circumstantial, Tangential, Racing Thought content: No Suicidal ideation, No Homicidal ideation, No Overt delusions Perceptual disturbances: No Auditory hallucinations, No Visual hallucinations Attention span: Capable of Focused Attention Memory description: Grossly Intact Patient reliability: Questionable Historian Intelligence estimate: Average Judgment: Limited Insight: Partial Results - Vital Signs Vital signs: Temp Pulse Resp BP Pulse Ox 98.0 F 80 16 128/78 98 10/29/16 09:00 10/29/16 09:00 10/29/16 09:00 10/29/16 09:00 10/28/16 05:14 - Labs Labs: Laboratory Last Values WBC 8.8 K/mcL (4.3-11.1) 10/26/16 01:27 RBC 4.46 M/mcL (4.19-5.50) 10/26/16 01:27 Hgb 13.3 g/dL (12.9-16.9) 10/26/16 01:27 Hct 40.7 % (37.5-50.1) 10/26/16 01:27 MCV 91.3 fL (83.0-100.0) 10/26/16 01:27 MCH 29.8 pg (28.0-33.3) 10/26/16 01:27 MCHC 32.7 g/dL (31.6-35.5) 10/26/16 01:27 RDW 13.6 % (11.5-14.5) 10/26/16 01:27 Plt Count 248 K/mcL (140-400) 10/26/16 01:27 MPV 9.7 fL (9.4-12.4) 10/26/16 01:27 Immature Gran % 0.3 % (0-4) 10/26/16 01:27 Seg Neutrophils % 57.0 % 10/26/16 01:27 Lymphocytes % 29.9 % 10/26/16 01:27 Monocytes % 10.1 % 10/26/16 01:27 Eosinophils % 2.4 % 10/26/16 01:27 Basophils % 0.3 % 10/26/16 01:27 Neutrophils # 5.0 K/mcL (1.6-8.9) 10/26/16 01:27 Lymphocytes # 2.6 K/mcL (0.6-4.6) 10/26/16 01:27 Monocytes # 0.9 K/mcL (0.0-1.3) 10/26/16 01:27 Eosinophils # 0.2 K/mcL (0.0-0.6) 10/26/16 01:27 Basophils # 0.0 K/mcL (0.0-0.2) 10/26/16 01:27 Sodium 140 mEq/L (136-145) 10/26/16 01:27 Potassium 3.6 mEq/L (3.5-4.5) 10/26/16 01:27 Chloride 109 mEq/L (98-109) 10/26/16 01:27 Carbon Dioxide 21 mEq/L (19-29) 10/26/16 01:27 BUN 26 mg/dL (8-26) 10/26/16 01:27 Creatinine 0.96 mg/dL (0.72-1.25) 10/26/16 01:27 Est GFR ( Amer) > 60 (> 60) 10/26/16 01:27 Est GFR (Non-Af Amer) > 60 (> 60) 10/26/16 01:27 BUN/Creatinine Ratio 27 (6-26) H 10/26/16 01:27 Glucose 131 mg/dL (70-99) H 10/26/16 01:27 Calculated Osmolality 297 (280-300) 10/26/16 01:27 Calcium 9.0 mg/dL (8.6-10.8) 10/26/16 01:27 Total Bilirubin 0.4 mg/dL (0.2-1.2) 10/26/16 01:27 Direct Bilirubin 0.2 mg/dL (0.0-0.5) 10/26/16 01:27 Indirect Bilirubin 0.2 mg/dL (0.0-1.2) 10/26/16 01:27 AST 24 Units/L (5-34) 10/26/16 01:27 ALT 19 Units/L (0-55) 10/26/16 01:27 Alkaline Phosphatase 70 Units/L (38-126) 10/26/16 01:27 Serum Total Protein 7.1 g/dL (6.0-8.3) 10/26/16 01:27 Albumin 3.6 g/dL (3.5-5.0) 10/26/16 01:27 Globulin 3.5 g/dL (2.4-3.5) 10/26/16 01:27 Albumin/Globulin Ratio 1.0 (1.1-2.2) L 10/26/16 01:27 TSH 3.112 mcIU/mL (0.350-4.840) 10/26/16 01:27 Urine Color Yellow (Yellow) 10/26/16 02:18 Urine Clarity Clear (Clear) 10/26/16 02:18 Urine pH 6.0 pH Units (5.0-8.0) 10/26/16 02:18 Ur Specific Grandin > 1.030 (1.010-1.025) H 10/26/16 02:18 Urine Protein Negative mg/dL (Neg-Trace) 10/26/16 02:18 Urine Glucose (UA) Normal mg/dL (Normal) 10/26/16 02:18 Urine Ketones Negative mg/dL (Negative) 10/26/16 02:18 Urine Blood Negative (Negative) 10/26/16 02:18 Urine Nitrite Negative (Negative) 10/26/16 02:18 Urine Bilirubin Small (Negative) H 10/26/16 02:18 Urine Urobilinogen Normal mg/dL (Normal) 10/26/16 02:18 Ur Leukocyte Esterase Negative (Negative) 10/26/16 02:18 Salicylates < 5.0 mg/dL (15-30) L 10/26/16 01:27 Urine Opiates Screen Negative ng/mL (Oyomzo=335) 10/26/16 02:21 Acetaminophen < 1.0 mcg/mL (10-30) L 10/26/16 01:27 Ur Barbiturates Screen Negative ng/mL (Fioghf=210) 10/26/16 02:21 Ur Phencyclidine Scrn Negative ng/mL (Cutoff=25) 10/26/16 02:21 Ur Amphetamines Screen Negative ng/mL (Kldslf=2411) 10/26/16 02:21 U Benzodiazepines Scrn Negative ng/mL (Gtrmqc=261) 10/26/16 02:21 Urine Cocaine Screen Negative ng/mL (Cutoff= 300) 10/26/16 02:21 U Marijuana (THC) Screen Positive ng/mL (Cutoff = 50) H 10/26/16 02:21 Ethyl Alcohol < 10 mg/dL (0-10) 10/26/16 01:27 Assessment and Plan (1) Unspecified psychosis Current visit: Yes Status: Acute Plan: Admit inpatient for safety and stabilization, Close observation, Suicide Precautions per unit protocol, Encourage participation in unit milieu, Group Therapy, Monitor sleep, Monitor appetite Risks, benefits, side effects, alternatives discussed w/pt: Yes Patient agreeable to treatment: No (Patient declines any treatment for psychosis or efren or depression) Qualifiers: Psychosis type: unspecified psychosis type Qualified Code(s): F29 - Unspecified psychosis not due to a substance or known physiological condition
[2016-10-29] MEDS: Acetaminophen 325 MG TABLET PO PRN (21:24)
[2016-10-29] MEDS: traZODone 50 MG TABLET PO PRN (21:25)
[2016-10-30] MEDS: ALPRAZolam 0.5 MG TABLET PO SCH (09:04)
[2016-10-30] MEDS: Nicotine 21 MG PATCH.TD24 TD SCH (09:05)
[2016-10-30 09:42] VITALS: BP 105/76
--- NOTE | 2016-10-30 13:35 | Discharge Summary ---
Date of Encounter: 10/30/16 Time of Encounter: 13:00 Diagnosis - Discharge Diagnosis (1) Unspecified psychosis Status: Acute Qualifiers: Psychosis type: unspecified psychosis type Qualified Code(s): F29 - Unspecified psychosis not due to a substance or known physiological condition Medications - Discharge Medications Prescriptions: Alprazolam [Xanax 0.5 MG Tablet] 0.5 mg PO BID #14 tablet Paroxetine HCl [Paxil] 10 mg PO DAILY 10/28/16 [History] Alprazolam [Xanax 0.5 MG Tablet] 0.5 mg PO BID #14 tablet 10/30/16 [Rx] Allergies No Known Allergies Allergy (Verified 10/25/16 23:51) Provider Date of admission: 10/28/16 15:29 Primary care physician: Matilda Solano MD Discharging clinician: Blue Iniguez Assessment and Plan - Patient/Caregiver Discharge Instructions Activity: resume usual activities as tolerated Diet: regular diet - Follow up Plan Follow up with: Matilda Solano MD [Primary Care Provider] - Functional capacity at discharge: independent ambulation Overall status at discharge: Stable Disposition: Home, Self-Care Hospital Course Hospital course: Mr. Mina is a 56 year old male admitted from the emergency room workup evaluation of acute psychosis. For details of the admission please see H&P On the units patient refused to take Paxil and said he is not depressed. He continued his alprazolam as prescribed and refused to take any antipsychotic or additional medication. He did not display any behavior or symptoms that wants that wants warrants for some medication forcing medication. He was compliant with unit rules did not display any aggressive or disruptive behavior. At this point he does not meet criteria for continued involuntary hospitalization and he would be discharged in stable condition and follow-up as per discharge plan. On discharge he is medically stable and not suicidal, not psychotic and cooperative with discharge procedures. - Time Spent with Patient Total time spent providing and/or coordinating discharge services: Greater than 30 minutes Quality - Multiple Antipsychotics Patient discharged on 2 or more antipsychotic medications: No Procedures - Procedures Procedures: Medication Management, Crisis Stabilization, Supportive Therapy, Group Therapy, Psychoeducational Therapy Mental Status Exam - Mental Status Exam Patient orientation: Yes Person, Yes Time, Yes Place Level of alertness: Alert Patient appearance: Appropriate, Unkempt Behavior: calm, cooperative, talkative Psychomotor activity: Normal Eye contact: Maintains Eye Contact Mood description: Euthymic/stable, Euphoric Affect description: congruent with mood, full range Speech pattern: Normal rate, Normal rhythm, Normal tone, Excessive Speech Volume: Normal Thought process: Linear, Goal Oriented Thought Content: No Suicidal ideation, No Homicidal ideation, No Overt delusions Perceptual Disturbances: No Auditory hallucinations, No Visual hallucinations Judgment: Limited Insight: Partial
[2016-10-30] MEDS: Acetaminophen 325 MG TABLET PO PRN (15:42)
== END 2016-10-30 18:07 | disposition home or self-care (01) | DRG 751 ==
LOC: EMEROO 23:25 → 1ANU 10-28 15:29
PROVIDERS: ADMIT Psychiatry & Neurology Psychiatry; ATTEND Psychiatry & Neurology Psychiatry

== ENCOUNTER 2021-01-05 17:53 | Observation (INO) ==
[2021-01-05 21:02] LABS: Basophils % 0.4 %; Eosinophils # 0.1 K/mcL (0.0-0.6); Hematocrit 43.7 % (37.5-50.1); Immature Granulocytes % 0.1 % (0-4); Lymphocytes # 2.6 K/mcL (0.6-4.6); Lymphocytes % 32.3 %; Mean Corpuscular Hemoglobin 30.2 pg (28.0-33.3); Mean Corpuscular Volume 94.4 fL (83.0-100.0); Mean Platelet Volume 9.9 fL (9.4-12.4); Monocytes # 0.6 K/mcL (0.0-1.3); Monocytes % 7.8 %; Neutrophils # 4.6 K/mcL (1.6-8.9); Platelet Count 226 K/mcL (140-400); Red Blood Count 4.63 M/mcL (4.19-5.50); Segmented Neutrophils % 58.4 %; White Blood Count 7.9 K/mcL (4.3-11.1)
[2021-01-05 21:27] LABS: Acetaminophen < 10 mcg/mL (10-20); Alanine Aminotransferase 11 Units/L (7-52); Albumin 4.1 g/dL (3.5-5.7); Albumin/Globulin Ratio 1.3 (1.1-2.2); Alkaline Phosphatase 80 Units/L (34-104); Aspartate Amino Transferase 11 Units/L (13-39); BUN/Creatinine Ratio 15 (6-26); Bilirubin,Total 0.6 mg/dL (0.3-1.0); Blood Urea Nitrogen 13 mg/dL (6-20); Calcium 9.9 mg/dL (8.6-10.3); Carbon Dioxide 29 mEq/L (23-29); Chloride 101 mEq/L (98-107); Creatine Kinase 78 Units/L (30-223); Ethanol < 10 mg/dL (Less than 10); Globulin 3.1 g/dL (2.4-3.5); Glucose 109 mg/dL (70-105); Magnesium 2.1 mg/dL (1.6-2.6); Osmolality,Calculated 295 (280-300); Salicylate < 2.5 mg/dL (15.0-30.0); Sodium 142 mEq/L (136-145); Total Protein 7.2 g/dL (6.4-8.9); Troponin I < 0.03 ng/mL (< 0.04); eGFR For African Americans > 60 (> 60); eGFR For Non-African Americans > 60 (> 60)
[2021-01-05 21:38] LABS: Thyroid Stimulating Hormone 1.182 mcIU/mL (0.340-5.600)
[2021-01-05 22:57] LABS: Bilirubin,Urine Negative (Negative); Blood,Urine Negative (Negative); Clarity,Urine Clear (Clear); Color,Urine Yellow (Yellow); Glucose,Urine (UA) Normal (Normal); Ketones,Urine Negative (Negative); Leukocyte Esterase,Urine Negative (Negative); Nitrite,Urine Negative (Negative); Protein,Urine Trace mg/dL (Neg-Trace); Specific Gravity,Urine 1.028 (1.010-1.025); Urobilinogen,Urine Normal (Normal)
[2021-01-05 23:07] LABS: Amphetamine Screen,Urine Negative ng/mL (Cutoff=1000); Barbiturate Screen,Urine Negative ng/mL (Cutoff=200); Benzodiazepines Screen,Urine Negative ng/mL (Cutoff=200); Cannabinoid Screen,Urine Negative ng/mL (Cutoff = 50); Cocaine Screen,Urine Negative ng/mL (Cutoff= 300); Opiate Screen,Urine Negative ng/mL (Cutoff=300); Phencyclidine Screen,Urine Negative ng/mL (Cutoff=25)
[2021-01-06] MEDS ORDERED: Naloxone 0.4 MG/ML INJ IVP PRN (08:28)
[2021-01-06] MEDS ORDERED: Ondansetron ODT 4 MG TAB.RAPDIS SL PRN (08:28)
[2021-01-06 11:13] LABS: Adenovirus Not Detected (Not Detect); Coronavirus 229E Not Detected (Not Detect); Coronavirus HKU1 Not Detected (Not Detect); Coronavirus NL63 Not Detected (Not Detect); Coronavirus OC43 Not Detected (Not Detect); Human Metapneumovirus Not Detected (Not Detect); Human Rhinovirus/Enterovirus Not Detected (Not Detect); Influenza A Subtype 2009 H1 Not Detected (Not Detect); SARS-CoV-2 Not Detected (Not Detect)
[2021-01-06 11:14] LABS: Bordetella Pertussis Not Detected (Not Detect); Chlamydophila pneumoniae Not Detected (Not Detect); Influenza B Not Detected (Not Detect); Mycoplasma pneumoniae Not Detected (Not Detect); Parainfluenza Virus 1 Not Detected (Not Detect); Parainfluenza Virus 2 Not Detected (Not Detect); Parainfluenza Virus 3 Not Detected (Not Detect); Parainfluenza Virus 4 Not Detected (Not Detect); Respiratory Syncytial Virus Not Detected (Not Detect)
[2021-01-06] MEDS: Nicotine 21 MG PATCH.TD24 TD SCH (13:28)
[2021-01-06] MEDS: Acetaminophen 325 MG TABLET PO PRN (15:28)
[2021-01-06] MEDS: haloperidoL 5 MG TABLET PO SCH (20:52)
[2021-01-07] MEDS: Nicotine 21 MG PATCH.TD24 TD SCH (11:30)
[2021-01-07] MEDS: Acetaminophen 325 MG TABLET PO PRN (11:36)
[2021-01-07] MEDS ORDERED: Ipratropium/Albuterol Neb 3 ML IH PRN (17:07)
[2021-01-07] MEDS: haloperidoL 5 MG TABLET PO SCH (20:43)
[2021-01-08] MEDS: Acetaminophen 325 MG TABLET PO PRN ×2 (02:24→20:39)
[2021-01-08 06:02] LABS: Basophils % 0.2 %; Eosinophils # 0.1 K/mcL (0.0-0.6); Eosinophils % 0.9 %; Hematocrit 43.8 % (37.5-50.1); Hemoglobin 14.4 g/dL (12.9-16.9); Immature Granulocytes % 0.4 % (0-4); Lymphocytes # 1.9 K/mcL (0.6-4.6); Lymphocytes % 17.9 %; Mean Corpuscular HGB Conc 32.9 g/dL (31.6-35.5); Mean Corpuscular Hemoglobin 30.3 pg (28.0-33.3); Mean Platelet Volume 10.2 fL (9.4-12.4); Monocytes # 0.7 K/mcL (0.0-1.3); Monocytes % 7.1 %; Neutrophils # 7.6 K/mcL (1.6-8.9); Platelet Count 205 K/mcL (140-400); Red Blood Count 4.76 M/mcL (4.19-5.50); Red Cell Distribution Width 13.9 % (11.5-14.5); Segmented Neutrophils % 73.5 %; White Blood Count 10.4 K/mcL (4.3-11.1)
[2021-01-08 06:17] LABS: BUN/Creatinine Ratio 17 (6-26); Blood Urea Nitrogen 14 mg/dL (6-20); Calcium 9.7 mg/dL (8.6-10.3); Carbon Dioxide 27 mEq/L (23-29); Chloride 103 mEq/L (98-107); Glucose 102 mg/dL (70-105); Magnesium 2.1 mg/dL (1.6-2.6); Osmolality,Calculated 287 (280-300); Sodium 138 mEq/L (136-145); eGFR For African Americans > 60 (> 60); eGFR For Non-African Americans > 60 (> 60)
[2021-01-08] MEDS: *HR* Enoxaparin 40 MG/0.4 ML SYRINGE SQ SCH (06:47)
[2021-01-08] MEDS: Nicotine 21 MG PATCH.TD24 TD SCH (10:03)
[2021-01-08] MEDS: haloperidoL 5 MG TABLET PO SCH (20:39)
[2021-01-09 04:21] LABS: Basophils % 0.3 %; Eosinophils # 0.1 K/mcL (0.0-0.6); Eosinophils % 0.5 %; Hematocrit 42.9 % (37.5-50.1); Hemoglobin 13.9 g/dL (12.9-16.9); Immature Granulocytes % 0.1 % (0-4); Lymphocytes # 1.6 K/mcL (0.6-4.6); Lymphocytes % 16.3 %; Mean Corpuscular HGB Conc 32.4 g/dL (31.6-35.5); Mean Corpuscular Hemoglobin 30.1 pg (28.0-33.3); Mean Corpuscular Volume 92.9 fL (83.0-100.0); Mean Platelet Volume 10.6 fL (9.4-12.4); Monocytes # 0.7 K/mcL (0.0-1.3); Monocytes % 7.2 %; Neutrophils # 7.4 K/mcL (1.6-8.9); Platelet Count 191 K/mcL (140-400); Red Blood Count 4.62 M/mcL (4.19-5.50); Red Cell Distribution Width 13.9 % (11.5-14.5); Segmented Neutrophils % 75.6 %; White Blood Count 9.8 K/mcL (4.3-11.1)
[2021-01-09 04:45] LABS: BUN/Creatinine Ratio 23 (6-26); Blood Urea Nitrogen 16 mg/dL (6-20); Calcium 9.5 mg/dL (8.6-10.3); Carbon Dioxide 24 mEq/L (23-29); Chloride 100 mEq/L (98-107); Glucose 108 mg/dL (70-105); Osmolality,Calculated 286 (280-300); Potassium 3.9 mEq/L (3.5-5.1); Sodium 137 mEq/L (136-145); eGFR For African Americans > 60 (> 60); eGFR For Non-African Americans > 60 (> 60)
[2021-01-09] MEDS: *HR* Enoxaparin 40 MG/0.4 ML SYRINGE SQ SCH (06:50)
[2021-01-09] MEDS: Nicotine 21 MG PATCH.TD24 TD SCH (11:11)
[2021-01-09] MEDS: clonazePAM 0.5 MG TABLET PO SCH ×3 (11:12→21:12)
[2021-01-09] MEDS ORDERED: Baclofen 10 MG TABLET PO SCH (15:00)
[2021-01-09] MEDS: haloperidoL 5 MG TABLET PO SCH (21:13)
[2021-01-10 07:40] LABS: Basophils % 0.2 %; Eosinophils # 0.1 K/mcL (0.0-0.6); Eosinophils % 0.6 %; Hematocrit 42.5 % (37.5-50.1); Hemoglobin 13.8 g/dL (12.9-16.9); Immature Granulocytes % 0.3 % (0-4); Lymphocytes % 11.1 %; Mean Corpuscular HGB Conc 32.5 g/dL (31.6-35.5); Mean Corpuscular Hemoglobin 30.1 pg (28.0-33.3); Mean Corpuscular Volume 92.6 fL (83.0-100.0); Mean Platelet Volume 10.6 fL (9.4-12.4); Monocytes # 0.7 K/mcL (0.0-1.3); Monocytes % 7.9 %; Platelet Count 191 K/mcL (140-400); Red Blood Count 4.59 M/mcL (4.19-5.50); Red Cell Distribution Width 13.8 % (11.5-14.5); Segmented Neutrophils % 79.9 %; White Blood Count 8.8 K/mcL (4.3-11.1)
[2021-01-10 07:57] LABS: BUN/Creatinine Ratio 23 (6-26); Blood Urea Nitrogen 17 mg/dL (6-20); Calcium 9.4 mg/dL (8.6-10.3); Carbon Dioxide 25 mEq/L (23-29); Chloride 101 mEq/L (98-107); Glucose 153 mg/dL (70-105); Osmolality,Calculated 283 (280-300); Sodium 134 mEq/L (136-145); eGFR For African Americans > 60 (> 60); eGFR For Non-African Americans > 60 (> 60)
[2021-01-10] MEDS: *HR* Enoxaparin 40 MG/0.4 ML SYRINGE SQ SCH ×2 (11:00→11:40)
[2021-01-10] MEDS: Nicotine 21 MG PATCH.TD24 TD SCH ×2 (11:01→11:37)
[2021-01-10] MEDS: clonazePAM 0.5 MG TABLET PO SCH ×4 (11:01→19:53)
[2021-01-10] MEDS: haloperidoL 5 MG TABLET PO SCH (19:53)
[2021-01-11] MEDS: clonazePAM 0.5 MG TABLET PO SCH ×3 (07:38→21:30)
[2021-01-11] MEDS: *HR* Enoxaparin 40 MG/0.4 ML SYRINGE SQ SCH (07:39)
[2021-01-11] MEDS: Nicotine 21 MG PATCH.TD24 TD SCH (07:40)
[2021-01-11 10:23] LABS: Basophils % 0.3 %; Eosinophils # 0.1 K/mcL (0.0-0.6); Hematocrit 44.6 % (37.5-50.1); Hemoglobin 14.7 g/dL (12.9-16.9); Immature Granulocytes % 0.3 % (0-4); Lymphocytes # 1.4 K/mcL (0.6-4.6); Lymphocytes % 20.1 %; Mean Corpuscular Hemoglobin 30.3 pg (28.0-33.3); Mean Platelet Volume 10.6 fL (9.4-12.4); Monocytes # 0.7 K/mcL (0.0-1.3); Monocytes % 10.7 %; Neutrophils # 4.7 K/mcL (1.6-8.9); Platelet Count 215 K/mcL (140-400); Red Blood Count 4.85 M/mcL (4.19-5.50); Red Cell Distribution Width 13.7 % (11.5-14.5); Segmented Neutrophils % 67.6 %; White Blood Count 6.9 K/mcL (4.3-11.1)
[2021-01-11 10:45] LABS: BUN/Creatinine Ratio 25 (6-26); Blood Urea Nitrogen 18 mg/dL (6-20); Calcium 9.6 mg/dL (8.6-10.3); Carbon Dioxide 23 mEq/L (23-29); Chloride 101 mEq/L (98-107); Glucose 140 mg/dL (70-105); Magnesium 1.9 mg/dL (1.6-2.6); Osmolality,Calculated 284 (280-300); Potassium 4.2 mEq/L (3.5-5.1); Sodium 135 mEq/L (136-145); eGFR For African Americans > 60 (> 60); eGFR For Non-African Americans > 60 (> 60)
[2021-01-11] MEDS: haloperidoL 5 MG TABLET PO SCH (21:30)
[2021-01-11] MEDS: Acetaminophen 325 MG TABLET PO PRN (21:34)
[2021-01-12] MEDS: *HR* Enoxaparin 40 MG/0.4 ML SYRINGE SQ SCH (03:18)
[2021-01-12 03:25] VITALS: BP 107/73
[2021-01-12 07:59] LABS: Basophils % 0.4 %; Eosinophils # 0.1 K/mcL (0.0-0.6); Eosinophils % 2.2 %; Hematocrit 43.9 % (37.5-50.1); Hemoglobin 14.1 g/dL (12.9-16.9); Immature Granulocytes % 0.2 % (0-4); Lymphocytes # 1.8 K/mcL (0.6-4.6); Mean Corpuscular HGB Conc 32.1 g/dL (31.6-35.5); Mean Corpuscular Hemoglobin 29.9 pg (28.0-33.3); Mean Platelet Volume 10.5 fL (9.4-12.4); Monocytes # 0.6 K/mcL (0.0-1.3); Monocytes % 11.8 %; Neutrophils # 2.8 K/mcL (1.6-8.9); Platelet Count 227 K/mcL (140-400); Red Blood Count 4.72 M/mcL (4.19-5.50); Red Cell Distribution Width 13.5 % (11.5-14.5); Segmented Neutrophils % 51.4 %; White Blood Count 5.4 K/mcL (4.3-11.1)
[2021-01-12 08:10] LABS: BUN/Creatinine Ratio 27 (6-26); Blood Urea Nitrogen 19 mg/dL (6-20); Calcium 9.5 mg/dL (8.6-10.3); Carbon Dioxide 26 mEq/L (23-29); Chloride 101 mEq/L (98-107); Glucose 98 mg/dL (70-105); Osmolality,Calculated 282 (280-300); Sodium 135 mEq/L (136-145); eGFR For African Americans > 60 (> 60); eGFR For Non-African Americans > 60 (> 60)
[2021-01-12] MEDS: Nicotine 21 MG PATCH.TD24 TD SCH (08:30)
[2021-01-12] MEDS: clonazePAM 0.5 MG TABLET PO SCH (08:30)
[2021-01-12 13:26] LABS: Adenovirus DETECTED (Not Detect); Bordetella Pertussis Not Detected (Not Detect); Chlamydophila pneumoniae Not Detected (Not Detect); Coronavirus 229E Not Detected (Not Detect); Coronavirus HKU1 Not Detected (Not Detect); Coronavirus NL63 Not Detected (Not Detect); Coronavirus OC43 Not Detected (Not Detect); Human Metapneumovirus Not Detected (Not Detect); Human Rhinovirus/Enterovirus Not Detected (Not Detect); Influenza A Subtype 2009 H1 Not Detected (Not Detect); Influenza B Not Detected (Not Detect); Mycoplasma pneumoniae Not Detected (Not Detect); Parainfluenza Virus 1 Not Detected (Not Detect); Parainfluenza Virus 2 Not Detected (Not Detect); Parainfluenza Virus 3 Not Detected (Not Detect); Parainfluenza Virus 4 Not Detected (Not Detect); Respiratory Syncytial Virus Not Detected (Not Detect); SARS-CoV-2 Not Detected (Not Detect)
== END 2021-01-12 14:20 ==
LOC: EMEROOARM 17:53 → 3ANU 17:53 → SUATTDRO 01-06 08:48 → 3ANU 01-06 10:26 → 3BNU 01-12 03:13
PROVIDERS: ADMIT Internal Medicine; ATTEND Pharmacist

== ENCOUNTER 2021-04-14 12:28 | Observation (INO) ==
[2021-04-14] MEDS ORDERED: 0.9 % Sodium Chloride 1,000 ML IVC ONE (13:12)
[2021-04-14 13:58] LABS: Basophils % 0.3 %; Eosinophils % 0.4 %; Hematocrit 42.7 % (37.5-50.1); Hemoglobin 14.5 g/dL (12.9-16.9); Immature Granulocytes % 0.1 % (0-4); Lymphocytes # 1.6 K/mcL (0.6-4.6); Lymphocytes % 24.1 %; Mean Corpuscular Hemoglobin 32.1 pg (28.0-33.3); Mean Corpuscular Volume 94.5 fL (83.0-100.0); Mean Platelet Volume 10.1 fL (9.4-12.4); Monocytes # 0.6 K/mcL (0.0-1.3); Monocytes % 9.4 %; Neutrophils # 4.4 K/mcL (1.6-8.9); Platelet Count 277 K/mcL (140-400); Red Blood Count 4.52 M/mcL (4.19-5.50); Red Cell Distribution Width 13.2 % (11.5-14.5); Segmented Neutrophils % 65.7 %; White Blood Count 6.7 K/mcL (4.3-11.1)
[2021-04-14 14:23] LABS: BUN/Creatinine Ratio 18 (6-26); Blood Urea Nitrogen 12 mg/dL (6-20); Calcium 9.8 mg/dL (8.6-10.3); Carbon Dioxide 26 mEq/L (23-29); Chloride 104 mEq/L (98-107); Creatine Kinase 188 Units/L (30-223); Glucose 113 mg/dL (70-105); Osmolality,Calculated 285 (280-300); Potassium 3.9 mEq/L (3.5-5.1); Sodium 137 mEq/L (136-145); Troponin I < 0.03 ng/mL (< 0.04); eGFR For African Americans > 60 (> 60); eGFR For Non-African Americans > 60 (> 60)
[2021-04-14] MEDS ORDERED: Naloxone 0.4 MG/ML INJ IVP PRN (16:18)
[2021-04-14] MEDS ORDERED: Ondansetron 4 MG/2 ML VIAL IVP PRN (16:24)
[2021-04-14] MEDS ORDERED: Acetaminophen 325 MG TABLET PO PRN (16:24)
[2021-04-14 16:46] LABS: Phosphorous 2.4 mg/dL (2.7-4.5)
[2021-04-14 17:00] LABS: Thyroid Stimulating Hormone 1.331 mcIU/mL (0.340-5.600)
[2021-04-14] MEDS: *HR* Heparin 5,000 UNIT/ML VIAL SQ SCH (20:03)
[2021-04-14 20:18] LABS: Bacteria,Urine Few per hpf (None-Few); Bilirubin,Urine Negative (Negative); Blood,Urine Small (Negative); Calcium Oxalate Crystals,Urine Present per hpf; Clarity,Urine Clear (Clear); Color,Urine Yellow (Yellow); Glucose,Urine (UA) Normal (Normal); Ketones,Urine Negative (Negative); Leukocyte Esterase,Urine Small (Negative); Mucus,Urine Few per lpf (None-Few); Nitrite,Urine Negative (Negative); Protein,Urine Trace mg/dL (Neg-Trace); RBC,Urine 50-100 per hpf (0-3); Specific Gravity,Urine 1.024 (1.010-1.025); Squamous Epithelial Cell,Urine Few per hpf (None-Few); Urobilinogen,Urine Normal (Normal); WBC,Urine 30-50 per hpf (0-3)
[2021-04-14 20:19] LABS: Amphetamine Screen,Urine Negative ng/mL (Cutoff=1000); Barbiturate Screen,Urine Negative ng/mL (Cutoff=200); Benzodiazepines Screen,Urine Negative ng/mL (Cutoff=200); Cannabinoid Screen,Urine Negative ng/mL (Cutoff = 50); Cocaine Screen,Urine Negative ng/mL (Cutoff= 300); Opiate Screen,Urine Negative ng/mL (Cutoff=300); Phencyclidine Screen,Urine Negative ng/mL (Cutoff=25)
[2021-04-15] MEDS: *HR* Heparin 5,000 UNIT/ML VIAL SQ SCH ×3 (04:36→19:23)
[2021-04-15 10:46] LABS: BUN/Creatinine Ratio 18 (6-26); Blood Urea Nitrogen 12 mg/dL (6-20); Calcium 9.5 mg/dL (8.6-10.3); Carbon Dioxide 29 mEq/L (23-29); Chloride 103 mEq/L (98-107); Glucose 87 mg/dL (70-105); Osmolality,Calculated 281 (280-300); Potassium 3.9 mEq/L (3.5-5.1); Sodium 136 mEq/L (136-145); eGFR For African Americans > 60 (> 60); eGFR For Non-African Americans > 60 (> 60)
[2021-04-16] MEDS: *HR* Heparin 5,000 UNIT/ML VIAL SQ SCH ×3 (05:04→20:23)
[2021-04-16] MEDS: haloperidoL 5 MG TABLET PO SCH (21:17)
[2021-04-17] MEDS: *HR* Heparin 5,000 UNIT/ML VIAL SQ SCH ×3 (05:00→20:56)
[2021-04-17] MEDS ORDERED: Cyanocobalamin (B-12) 1,000 MCG/ML VIAL IM ONE (08:42)
[2021-04-17] MEDS: haloperidoL 5 MG TABLET PO SCH (20:56)
[2021-04-18] MEDS: *HR* Heparin 5,000 UNIT/ML VIAL SQ SCH ×3 (05:30→22:09)
[2021-04-18] MEDS: Cyanocobalamin (B-12) 1,000 MCG TABLET PO SCH (09:30)
[2021-04-18] MEDS: haloperidoL 5 MG TABLET PO SCH (22:09)
[2021-04-19] MEDS: *HR* Heparin 5,000 UNIT/ML VIAL SQ SCH ×3 (06:13→21:13)
[2021-04-19] MEDS: Cyanocobalamin (B-12) 1,000 MCG TABLET PO SCH (14:54)
[2021-04-19] MEDS: haloperidoL 5 MG TABLET PO SCH (21:13)
[2021-04-20] MEDS: *HR* Heparin 5,000 UNIT/ML VIAL SQ SCH ×3 (05:09→21:11)
[2021-04-20] MEDS: Cyanocobalamin (B-12) 1,000 MCG TABLET PO SCH (07:25)
[2021-04-20] MEDS: haloperidoL 5 MG TABLET PO SCH (21:07)
[2021-04-21 03:21] VITALS: TEMP 97.5
[2021-04-21] MEDS: *HR* Heparin 5,000 UNIT/ML VIAL SQ SCH (05:49)
[2021-04-21 07:03] VITALS: BP 117/79; PULSE 65
[2021-04-21] MEDS: Cyanocobalamin (B-12) 1,000 MCG TABLET PO SCH (09:13)
[2021-04-21 09:47] VITALS: O2SAT 94
== END 2021-04-21 12:29 ==
LOC: EMEROOARM 12:28 → 3BNU 12:28 → SUATTDRO 15:34 → 3BNU 16:41 → UNDODISOB 04-15 17:41
PROVIDERS: ADMIT Family Medicine; ATTEND Student in an Organized Health Care Education/Training Program